=== PATIENT | female | born 1940 | race Caucasian/White ===

== ENCOUNTER → 2016-07-14 | Outpatient (CLI) | payer OTHER, MEDICARE ==
[~2016-07-14] MED LIST: ALBUAER2 INH; AMXCH400 PO; AZITTAB PO; AZMINH INH; GLC500 PO; HYCUDL5 PO; HYD50 PO; LVXUNK; METH4PAK4 PO; PANT40TA PO; POTA-335 PO; SIMV20TA2 PO
[2016-07-14 15:18] LABS: ESTIMATED AVERAGE GLUCOSE 192 mg/dl; HA1C FLAG Normal (Normal)
[2016-07-14 15:37] LABS: BLOOD UREA NITROGEN 16 mg/dl (7-18); BUN/CREATININE RATIO 18.9 (10-20); CALCIUM 9.3 mg/dl (8.5-10.1); CARBON DIOXIDE 27 mmol/L (21-32); CHLORIDE 104 mmol/L (98-107); CREATININE 0.82 mg/dl (0.60-1.20); GLUCOSE 191 mg/dl (70-99); MAGNESIUM 1.9 mg/dl (1.8-2.4); POTASSIUM 4.1 mmol/L (3.5-5.1); SODIUM 140 mmol/L (136-145)
== END | disposition home or self-care (01) ==
LOC: C.LABBC 09:27
PROVIDERS: ATTEND Internal Medicine
DX: E87.6 Hypokalemia (principal); E11.9 Type 2 diabetes mellitus without complications

== ENCOUNTER → 2016-11-21 | Outpatient (CLI) | payer OTHER, MEDICARE ==
[2016-11-21 11:13] LABS: URINE APPEARANCE TURBID (CLEAR); URINE BILIRUBIN NEG (NEG); URINE COLOR DK YELLOW; URINE NITRITE NEG (NEG); URINE PH 5.5 (4.5-7.5); URINE SPECIFIC GRAVITY 1.028 (1.000-1.030); UROBILINOGEN NEG (NEG); ZZUR CULT IF INDIC CLEAN CATCH NO
[2016-11-21 11:15] LABS: MANUAL MICROSCOPIC REQUIRED? NO; REVIEW REQ? NO
[2016-11-21 11:36] LABS: RATIO 16.8 mcg/mg (0-30.0)
== END | disposition home or self-care (01) ==
LOC: C.LABBC 09:25
PROVIDERS: ATTEND Internal Medicine
DX: E11.65 Type 2 diabetes mellitus with hyperglycemia (principal)

== ENCOUNTER → 2016-12-22 | Outpatient (CLI) | payer OTHER, MEDICARE ==
--- NOTE | 2016-12-22 15:51 | MAMMOGRAPHY REPORT ---
BILATERAL DIGITAL SCREENING MAMMOGRAM WITH CAD: 12/22/2016 CLINICAL HISTORY: Routine screening. Patient has no complaints. TECHNIQUE: Bilateral CC and MLO views were obtained. Current study was also evaluated with a Compute r Aided Detection (CAD) system. COMPARISON: Comparison is made to exams dated: 06/28/2015 mammogram, 12/21/2013 mammogram, 10/01/2012 ma mmogram, 03/13/2011 mammogram, 01/16/2010 mammogram - [facility], and 09/05/2008. BREAST COMPOSITION: There are scattered areas of fibroglandular density in both breasts. FINDINGS: There is a stable, benign-appearing grouping of round and punctate microcalcifications in the lateral left breast. A stable intramammary lymph node in the lateral right breast. No new suspic ious mass, architectural distortion or cluster of microcalcifications is seen. IMPRESSION: ACR BI-RADS CATEGORY 2: BENIGN There is no mammographic evidence of malignancy. A 1 year screening mammogram is recommended. The pa tient will receive written notification of the results. Approximately 10% of breast cancers are not detected with mammography. A negative mammographic report should not delay biopsy if a clinically suggestive mass is present. Molly Joyner M.D. ay/:12/22/2016 15:30:31 Proofing Machine Operator: Alivia MENDEZ(Julian)(Allie), [facility] letter sent: Normal 1/2 BI-RADS Code: ACR BI-RADS Category 2: Benign
== END | disposition home or self-care (01) ==
LOC: C.MAMM 14:36
PROVIDERS: ATTEND Internal Medicine
DX: Z12.31 Encounter for screening mammogram for malignant neoplasm of breast (principal)

== ENCOUNTER → 2016-12-23 | Outpatient (CLI) | payer OTHER, MEDICARE ==
[2016-12-23 11:03] LABS: BASO % 0.7 %; BASO ABS # 0.05 K/uL (0-0.2); COMPLETE YES; EOS % 1.6 %; HEMATOCRIT 41.2 % (37-47); IG% 0.1 %; LYMPH % 36.7 %; LYMPH ABS # 2.45 K/uL (1.2-3.4); MEAN CELL VOLUME 84.1 fL (80-100); MEAN CORPUSCULAR HGB CONC 33.3 g/dl (32-36); MEAN PLATELET VOLUME 11.4 fL (7.4-10.4); MONO % 7.8 %; NEUT % 53.1 %; PLATELET COUNT 260 K/uL (130-400); WHITE BLOOD COUNT 6.67 K/uL (4.8-10.8)
[2016-12-23 11:16] LABS: ESTIMATED AVERAGE GLUCOSE 174 mg/dl; HA1C FLAG Normal (Normal)
[2016-12-23 11:23] LABS: ALT/SGPT 15 U/L (12-78); BLOOD UREA NITROGEN 16 mg/dl (7-18); BUN/CREATININE RATIO 21.1 (10-20); CALCIUM 9.5 mg/dl (8.5-10.1); CARBON DIOXIDE 26 mmol/L (21-32); CHLORIDE 105 mmol/L (98-107); CHOLESTEROL 119 mg/dl (0-200); CREATININE 0.75 mg/dl (0.60-1.20); GLUCOSE 136 mg/dl (70-99); POTASSIUM 3.8 mmol/L (3.5-5.1); SODIUM 139 mmol/L (136-145); TRIGLYCERIDES 148 mg/dl (0-150); VERY LOW DENSITY LIPOPROT CALC 30 mg/dl
[2016-12-23 11:34] LABS: ALB/GLOB RATIO 1.2 (0.9-2); ALKALINE PHOSPHATASE 68 U/L (45-117); AST/SGOT 19 U/L (15-37); HDL CHOLESTEROL 40 mg/dl; LDL CHOLESTEROL CALCULATED 49 mg/dl; THYROID STIMULATING HORMONE 0.778 uIu/ml (0.300-4.500)
== END | disposition home or self-care (01) ==
LOC: C.LABBC 08:34
PROVIDERS: ATTEND Internal Medicine
DX: E78.5 Hyperlipidemia, unspecified (principal); E11.65 Type 2 diabetes mellitus with hyperglycemia; E03.9 Hypothyroidism, unspecified

== ENCOUNTER 2020-04-24 14:50 | Observation (INO) ==
[2020-04-24] MEDS ORDERED: SODIUM CHLORIDE 0.9% 1000ML 1,000 ML IV ONE (15:03)
[2020-04-24] MEDS ORDERED: ACETAMINOPHEN 500 MG TAB PO STA (15:03)
--- NOTE | 2020-04-24 15:26 | XRay Report ---
XR chest 1V portable CLINICAL HISTORY: SEPSIS COMPARISON STUDY: July 2012 FINDINGS: The heart is normal in size. There are subtle left lung interstitial opacities and equivoca l subtle airspace opacities within the axillary portion of the left chest. A subtle pneumonitis canno t be excluded. Clinical and radiographic follow-up is recommended. There are no significant pleural e ffusions IMPRESSION: Subtle left lung opacities. This could represent a subtle pneumonitis. Clinical and radio graphic follow-up is recommended ACT 112: Negative or not required by law. Electronically signed by: Bhargav Olguin M.D. 04/24/2020 3:24 PM
[2020-04-24 15:51] LABS: Partial Thromboplastin Time 28.6 Seconds (21.0-31.0)
[2020-04-24 15:55] LABS: Alanine Aminotransferase 26 U/L (12-78); Albumin Level 3.1 gm/dl (3.4-5.0); Aspartate Aminotransferase 38 U/L (15-37); BUN Creatinine Ratio 17.1 (10-20); Blood Urea Nitrogen 19 mg/dl (7-18); Calcium 8.6 mg/dl (8.5-10.1); Carbon Dioxide 23 mmol/L (21-32); Chloride 106 mmol/L (98-107); Creatinine Clr Calc Pharmacy 44.6 ml/min; Est GFR (African American) 53.3; Glucose 258 mg/dl (70-99); Magnesium 1.6 mg/dl (1.8-2.4); Potassium 4.1 mmol/L (3.5-5.1); Sodium 138 mmol/L (136-145)
[2020-04-24 16:00] LABS: Albumin Globulin Ratio 0.8 (0.9-2); Alkaline Phosphatase 87 U/L (45-117); Bilirubin,Total 0.3 mg/dl (0.2-1); Globulin 3.9 gm/dl (2.5-4.0); Troponin I < 0.015 ng/ml (0-0.045)
[2020-04-24 17:16] LABS: Basophils # (auto) 0.02 K/uL (0-0.2); Basophils % (auto) 0.2 %; Hematocrit (blood only) 38.5 % (37-47); Hemoglobin 13.4 g/dL (12.0-16.0); Immature Granulocytes # (auto) 0.02 K/uL (0.00-0.02); Immature Granulocytes % (auto) 0.2 %; Lymphocytes # (auto) 0.74 K/uL (1.2-3.4); Lymphocytes % (auto) 7.7 %; Mean Corpuscular Hemoglobin 29.2 pg (25-34); Mean Corpuscular Hgb Conc 34.8 g/dL (32-36); Mean Corpuscular Volume 83.9 fL (80-100); Mean Platelet Volume 11.5 fL (7.4-10.4); Monocytes # (auto) 0.75 K/uL (0.11-0.59); Monocytes % (auto) 7.8 %; Neutrophils # (auto) 8.12 K/uL (1.4-6.5); Neutrophils % (auto) 84.1 %; Platelet Count 184 K/uL (130-400); RDW Coefficient of Variation 13.9 % (11.5-14.5); RDW Standard Deviation 42.4 fL (36.4-46.3); Red Blood Count 4.59 M/uL (4.2-5.4); White Blood Count 9.65 K/uL (4.8-10.8)
--- NOTE | 2020-04-24 17:39 | Emergency Department Note ---
History of Present Illness General Chief complaint: Illness Stated complaint: HAD TREATEMENT FOR COVID/CHILLS CAN'T STOP Time Seen by Provider: 04/24/20 15:03 History of Present Illness Provider complaint: Fever chills shortness of breath cough Onset (ago): hour(s) 3 Associated symptoms: + cough, + fever/chills and + shortness of breath; no chest pain, no nausea/vomiting and no rash 71-year-old female presents emergency department for fever, chills, shortness of breath, and cough. Patient states her symptoms started approximately 3 hours ago, approximately 45 minutes since she got home after she was seen in the emergency department today for receiving an infusion of Regeneron, the monocl onal antibody for COVID-19. Patient states that since she had the symptoms she was instructed to return back to the emergency department. She denies any chest pain. She denies any nausea or vomiting. She denies any tongue or lip swelling. Home Medications Medication Instructions Recorded Confirmed Type cholecalciferol (vitamin D3) 50 2,000 units PO DAILY 09/01/18 04/24/20 History mcg (2,000 unit) capsule cetirizine 10 mg tablet 10 mg PO DAILY tab 11/24/18 04/24/20 History magnesium oxide 400 mg (241.3 mg 400 mg PO DAILY tab 11/24/18 04/24/20 History magnesium) tablet tamoxifen 10 mg tablet 10 mg PO Q2D tab 11/24/18 04/24/20 History albuterol sulfate 90 mcg/actuation See Rx Instructions INHALATION Q4H 12/29/18 04/24/20 Rx aerosol inhaler PRN #18 gm budesonide-formoterol HFA 160 2 puffs INH BID #6 gm 06/16/19 04/24/20 Rx mcg-4.5 mcg/actuation aerosol inhaler dulaglutide 0.75 mg/0.5 mL 0.75 mg SUBCUT .weekly #2 ml 10/25/19 04/24/20 Rx subcutaneous pen injector glipizide 5 mg tablet, extended See Rx Instructions .ROUTE 10/25/19 04/24/20 Rx release 24 hr .COMPLEX #270 tab levothyroxine 75 mcg tablet 75 mcg PO DAILY #90 tab 10/25/19 04/24/20 Rx losartan 50 mg tablet 50 mg PO DAILY #90 tab 10/25/19 04/24/20 Rx metformin 500 mg tablet 1,000 mg PO BID #360 tab 10/25/19 04/24/20 Rx simvastatin 20 mg tablet 20 mg PO DAILY #90 tab 10/25/19 04/24/20 Rx spironolactone 25 mg tablet 25 mg PO DAILY #90 tab 10/25/19 04/24/20 Rx Allergies Allergy/AdvReac Type Severity Reaction Status Date / Time lisinopril Allergy Cough Verified 04/24/20 09:39 meperidine Allergy Unknown Verified 04/24/20 09:39 propoxyphene Allergy Unknown Verified 04/24/20 09:39 DEMEROL AdvReac Unknown Vomiting Uncoded 04/24/20 09:39 Past Med/Surg History Medical History Actinic keratosis Asthma Hyperlipidemia Hypertension Hypothyroidism 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 Rosacea Schatzki's ring Seasonal allergies Type 2 diabetes mellitus Surgical History H/O lumpectomy H/O umbilical hernia repair H/O vaginal hysterectomy S/P anal fissurectomy S/P tonsillectomy S/P tooth extraction Family History Mother Anxiety Cardiac disorder Hypertension Myocardial infarction Thyroid disorder Sister Anxiety Father Alcohol abuse Diabetes Hypertension Stroke Denies family history of Ovarian cancer Prostate cancer Breast cancer Colorectal cancer Social History Smoking Status: Never smoker Second Hand Exposure: No; Hx Alcohol Use: Yes Hx Substance Use: No Preferred Language: Turkish Visual Impairment: No Limitations Hearing Ability: Normal marital status: Current Living Situation: Spouse current occupational status: retired Feels Safe at Home: Yes Dental Care, Regularly: Yes Physical Activity Frequency: 5-6 Times per Week Review of Systems A total of 10 systems reviewed and were otherwise negative Physical Exam Vital Signs Vital Signs - 24 hr 04/24/20 14:58 04/24/20 15:49 04/24/20 15:52 Temperature 39.4 C H Temperature Source Oral Pulse Rate 118 H 111 H 110 H Pulse Rate [Exercises] Pulse Rate from SpO2 Sensor 111 H 111 H Pulse Rhythm Regular Pulse Strength Normal Respiratory Rate 22 22 27 H Respiratory Rate [Exercises] Respiratory Effort / Characteristics Non-Labored Respiratory Depth Normal Respiratory Pattern Regular Blood Pressure 123/64 137/66 Blood Pressure Mean 83 89 Blood Pressure Position Sitting Pulse Oximetry 92 89 L 88 L Pulse Oximetry [Exercises] Oxygen Delivery Method Room Air Sepsis Recent Fever Within 48 Hours Yes Sepsis New/Unexplained Change in Mental Status No Sepsis Action Taken by Nursing No Action Required 04/24/20 16:00 04/24/20 16:01 04/24/20 16:30 Temperature Temperature Source Pulse Rate 110 H 110 H 100 H Pulse Rate [Exercises] Pulse Rate from SpO2 Sensor 110 H 110 H 100 H Pulse Rhythm Pulse Strength Respiratory Rate 29 H 30 H 30 H Respiratory Rate [Exercises] Respiratory Effort / Characteristics Respiratory Depth Respiratory Pattern Blood Pressure 122/62 110/59 L Blood Pressure Mean 82 76 Blood Pressure Position Pulse Oximetry 88 L 88 L 88 L Pulse Oximetry [Exercises] Oxygen Delivery Method Sepsis Recent Fever Within 48 Hours Sepsis New/Unexplained Change in Mental Status Sepsis Action Taken by Nursing 04/24/20 16:31 04/24/20 17:00 04/24/20 17:29 Temperature Temperature Source Pulse Rate 99 H 100 H Pulse Rate [Exercises] 93 H Pulse Rate from SpO2 Sensor 99 H 101 H Pulse Rhythm Pulse Strength Respiratory Rate 23 19 Respiratory Rate [Exercises] 20 Respiratory Effort / Characteristics Respiratory Depth Respiratory Pattern Blood Pressure 113/66 Blood Pressure Mean 81 Blood Pressure Position Pulse Oximetry 91 91 Pulse Oximetry [Exercises] 90 Oxygen Delivery Method Room Air Sepsis Recent Fever Within 48 Hours Sepsis New/Unexplained Change in Mental Status Sepsis Action Taken by Nursing Physical Exam GENERAL: She is oriented to person, place, and time. She appears well-developed and well-nourished. She does not appear distressed. HENT: Exam performed. -Head: Normocephalic and atraumatic. -Right Ear: External ear normal. No mastoid tenderness. -Left Ear: External ear normal. No mastoid tenderness. -Mouth/Throat: The oropharynx is clear and moist. No trismus in the jaw. No dental abscesses or uvula swelling. No oropharyngeal exudate or tonsillar abscesses. EYES: Conjunctivae and EOM are normal. Pupils are equal, round, and reactive to light. Right eye exhibits no discharge. Left eye exhibits no discharge. No sc leral icterus. NECK: Normal range of motion. Neck supple. No JVD present. No spinous process tenderness present. No carotid bruit present. No rigidity. No tracheal deviation and normal range of motion present. No Brudzinski's sign and no Kernig's sign noted. CV: Tachycardic rate, regular rhythm, normal heart sounds and intact distal pulses. There is no peripheral edema. Palpable radial pulses bue. PULM/CHEST: Effort normal and breath sounds normal. No respiratory distress. No stridor. She has no wheezes. She has no rales. -Chest Wall: She exhibits no tenderness. ABD: The abdomen is soft. Bowel sounds are normal. She has no distension. No mass is present. There is no tenderness. There is no rebound, no guarding, no Perez's sign and no tenderness at McBurney's point. Rovsig negative MUSC/SKEL: Normal range of motion. There is no peripheral edema, tenderness or deformity. LYMPH: No cervical adenopathy. NEURO: She is alert and oriented to person, place, and time. She has normal strength. No cranial nerve deficit or sensory deficit. Coordination and gait normal. GCS eye subscore is 4. GCS verbal subscore is 5. GCS motor subscore is 6. Cerebellar tests wnl. SKIN: Skin is warm and dry. She is not diaphoretic. PSYCH: She has a normal mood and affect. Behavior is normal. Judgment and thought content normal. Course Course 1503: The patient was evaluated in room C10. A complete history and physical exam was performed. Patient was seen in full airborne precautions. Patient was seen in N95's, gloves, gowns, face shield by myself and staff. Cardiac monitoring: An order was placed for continuous cardiac monitoring. The monitor shows a rate of 110 with sinus tachycardia rhythm Patient has no lip or tongue swelling. She has no rash. Lungs are clear to auscultation bilaterally. Patient is not having any anaphylactic symptoms. It is unclear if the patient is having adverse drug reaction to the monoclonal antibody or if the patient is having progression of her Covid symptoms. Will check labs and continue to monitor patient. 1800: Patient is satting between 90 and 92% on room air. Patient's labs showed a normal white blood cell count but did show a lactic acid of 4.8. Her chest x- ray showed subtle left lung opacities. I had a very long discussion with the patient in her room about her findings today. I explained all of her lab results and that her lactic acidemia could be due to a worsening infection, primarily her COVID-19, or could be due to dehydration. Patient states she does feel very dehydrated. I did explain to her that I do not think that the patient was having an anaphylactic reaction and it could be more of a medication reaction or worsening of her COVID-19 that is causing her symptoms today. I did state that given her age, her lactic acid level, her tachycardia, intermittent hypoxia, difficulty arranging outpatient follow-up, and symptoms it would be prudent to keep the patient in the hospital overnight and make sure the patient is not having worsening of symptoms or any sort of delayed reaction to the Regeneron that she was given earlier today. Patient thanked me for taking the time to explain the results of her test to her today. Dr. Konrad marshall [facility] hospitalist team was notified and will admit the patient. Administered Medications Discontinued Medications Acetaminophen (Acetaminophen 500 Mg Tab) 1,000 mg PO NOW STA Stop: 04/24/20 15:04 Last Admin: 04/24/20 15:55 Dose: 1,000 mg Documented by: [id number] Sodium Chloride (Nss 1000ml) 1,000 mls @ 999 mls/hr IV .Q1H1M ONE Stop: 04/24/20 16:03 Last Infusion: 04/24/20 16:59 Dose: 0 mls/hr Documented by: [id number] Admin: 04/24/20 15:55 Dose: 999 mls/hr Documented by: [id number] Critical Care Time Critical Care Time: Yes Total Critical Care Time: 78 I have personally spent greater than 78 minutes of critical care time in the direct management of this patient. This includes bedside care, interpretation of diagnostic studies, and testing, discussion with consultants, patient, and family members, and other required patient management activities. This 78 minutes is in excess of all separately billable procedures. Medical Decision Making Laboratory Data Result diagrams: 04/24/20 17:05 04/24/20 15:27 Lab Results 04/24/20 04/24/20 04/24/20 Range/Units 15:27 15:27 17:05 WBC (4.8-10.8) K/uL RBC (4.2-5.4) M/uL Hgb (12.0-16.0) g/dL Hct (37-47) % MCV (80-100) fL MCH (25-34) pg MCHC (32-36) g/dL RDW Std Deviation (36.4-46.3) fL RDW Coeff of Alethea (11.5-14.5) % Plt Count (130-400) K/uL MPV (7.4-10.4) fL Immature Gran % (Auto) % Neut % (Auto) % Lymph % (Auto) % Potter % (Auto) % Eos % (Auto) % Baso % (Auto) % Neut # (Auto) (1.4-6.5) K/uL Lymph # (Auto) (1.2-3.4) K/uL Potter # (Auto) (0.11-0.59) K/uL Eos # (Auto) (0-0.5) K/uL Baso # (Auto) (0-0.2) K/uL Immature Gran # (Auto) (0.00-0.02) K/uL PT 11.0 (9.0-12.0) Seconds INR 1.0 (0.9-1.1) APTT 28.6 (21.0-31.0) Seconds PTT Ratio 1.0 Sodium 138 (136-145) mmol/L Potassium 4.1 (3.5-5.1) mmol/L Chloride 106 (98-107) mmol/L Carbon Dioxide 23 (21-32) mmol/L Anion Gap 9.0 (3-11) BUN 19 H (7-18) mg/dl Creatinine 1.14 (0.6-1.2) mg/dl Est Cr Clr Drug Dosing 44.6 ml/min Est GFR ( Amer) 53.3 Est GFR (Non-Af Amer) 46.0 BUN/Creatinine Ratio 17.1 (10-20) Glucose 258 H (70-99) mg/dl Lactate (0.4-2.0) mmol/L Calcium 8.6 (8.5-10.1) mg/dl Magnesium 1.6 L (1.8-2.4) mg/dl Total Bilirubin 0.3 (0.2-1) mg/dl AST 38 H (15-37) U/L ALT 26 (12-78) U/L Alkaline Phosphatase 87 (45-117) U/L Troponin I < 0.015 (0-0.045) ng/ml Total Protein 7.0 (6.4-8.2) gm/dl Albumin 3.1 L (3.4-5.0) gm/dl Globulin 3.9 (2.5-4.0) gm/dl Albumin/Globulin Ratio 0.8 L (0.9-2) Procalcitonin 0.11 (0-0.5) ng/ml 04/24/20 04/24/20 Range/Units 17:05 17:05 WBC 9.65 (4.8-10.8) K/uL RBC 4.59 (4.2-5.4) M/uL Hgb 13.4 (12.0-16.0) g/dL Hct 38.5 (37-47) % MCV 83.9 (80-100) fL MCH 29.2 (25-34) pg MCHC 34.8 (32-36) g/dL RDW Std Deviation 42.4 (36.4-46.3) fL RDW Coeff of Alethea 13.9 (11.5-14.5) % Plt Count 184 (130-400) K/uL MPV 11.5 H (7.4-10.4) fL Immature Gran % (Auto) 0.2 % Neut % (Auto) 84.1 % Lymph % (Auto) 7.7 % Potter % (Auto) 7.8 % Eos % (Auto) 0.0 % Baso % (Auto) 0.2 % Neut # (Auto) 8.12 H (1.4-6.5) K/uL Lymph # (Auto) 0.74 L (1.2-3.4) K/uL Potter # (Auto) 0.75 H (0.11-0.59) K/uL Eos # (Auto) 0.00 (0-0.5) K/uL Baso # (Auto) 0.02 (0-0.2) K/uL Immature Gran # (Auto) 0.02 (0.00-0.02) K/uL PT (9.0-12.0) Seconds INR (0.9-1.1) APTT (21.0-31.0) Seconds PTT Ratio Sodium (136-145) mmol/L Potassium (3.5-5.1) mmol/L Chloride (98-107) mmol/L Carbon Dioxide (21-32) mmol/L Anion Gap (3-11) BUN (7-18) mg/dl Creatinine (0.6-1.2) mg/dl Est Cr Clr Drug Dosing ml/min Est GFR ( Amer) Est GFR (Non-Af Amer) BUN/Creatinine Ratio (10-20) Glucose (70-99) mg/dl Lactate 4.8 H* (0.4-2.0) mmol/L Calcium (8.5-10.1) mg/dl Magnesium (1.8-2.4) mg/dl Total Bilirubin (0.2-1) mg/dl AST (15-37) U/L ALT (12-78) U/L Alkaline Phosphatase (45-117) U/L Troponin I (0-0.045) ng/ml Total Protein (6.4-8.2) gm/dl Albumin (3.4-5.0) gm/dl Globulin (2.5-4.0) gm/dl Albumin/Globulin Ratio (0.9-2) Procalcitonin (0-0.5) ng/ml Imaging Data Radiologist's Impression: XR chest 1V portable CLINICAL HISTORY: SEPSIS COMPARISON STUDY: July 2012 FINDINGS: The heart is normal in size. There are subtle left lung interstitial opacities and equivocal subtle airspace opacities within the axillary portion of the left chest. A subtle pneumonitis cannot be excluded. Clinical and radiographic follow-up is recommended. There are no significant pleural effusions IMPRESSION: Subtle left lung opacities. This could represent a subtle pneumonitis. Clinical and radiographic follow-up is recommended ACT 112: Negative or not required by law. Electronically signed by: Bhargav Olguin M.D. 04/24/2020 3:24 PM ECG Data Indication: + SOB/dyspnea Rate (beats per minute): 112 Rhythm: + sinus tachycardia ECG Intervals/blocks: + First degree AV block, + Normal QRS and + Normal QT-c ECG ST segments: + Normal ST segments [place] Narrative 1503: The patient was evaluated in room C10. A complete history and physical exam was performed. Patient was seen in full airborne precautions. Patient was seen in N95's, gloves, gowns, face shield by myself and staff. Cardiac monitoring: An order was placed for continuous cardiac monitoring. The monitor shows a rate of 110 with sinus tachycardia rhythm Patient has no lip or tongue swelling. She has no rash. Lungs are clear to auscultation bilaterally. Patient is not having any anaphylactic symptoms. It is unclear if the patient is having adverse drug reaction to the monoclonal antibody or if the patient is having progression of her Covid symptoms. Will check labs and continue to monitor patient. 1800: Patient is satting between 90 and 92% on room air. Patient's labs showed a normal white blood cell count but did show a lactic acid of 4.8. Her chest x- ray showed subtle left lung opacities. I had a very long discussion with the patient in her room about her findings today. I explained all of her lab results and that her lactic acidemia could be due to a worsening infection, primarily her COVID-19, or could be due to dehydration. Patient states she does feel very dehydrated. I did explain to her that I do not think that the patient was having an anaphylactic reaction and it could be more of a medication reaction or worsening of her COVID-19 that is causing her symptoms today. I did state that given her age, her lactic acid level, her tachycardia, intermittent hypoxia, difficulty arranging outpatient follow-up, and symptoms it would be prudent to keep the patient in the hospital overnight and make sure the patient is not having worsening of symptoms or any sort of delayed reaction to the Regeneron that she was given earlier today. Patient thanked me for taking the time to explain the results of her test to her today. Dr. Konrad marshall [facility] hospitalist team was notified and will admit the patient. Impression & Plan Hypoxia, Sepsis, COVID-19, Adverse drug reaction Discharge Plan Visit Data Chief Complaint: Illness Stated Complaint: HAD TREATEMENT FOR COVID/CHILLS CAN'T STOP ED Provider: Morgan Salazar Discharge Problem: Hypoxia, Sepsis, COVID-19, Adverse drug reaction Patient Disposition: Admitted As Inpatient Forms Stand Alone Forms: [facility] Prescriptions Prescriptions: No Action albuterol sulfate 90 mcg/actuation HFA aerosol inhaler See Rx Instructions inhalation Q4H PRN (Reason: shortness of breath or wheezing) Qty: 18 RF: 5 Symbicort 160-4.5 mcg/actuation HFA aerosol inhaler 2 puffs INH BID Qty: 6 RF: 5 spironolactone 25 mg tablet 25 mg PO DAILY Qty: 90 RF: 3 simvastatin 20 mg tablet 20 mg PO DAILY Qty: 90 RF: 3 metformin 500 mg tablet 1,000 mg PO BID Qty: 360 RF: 3 losartan 50 mg tablet 50 mg PO DAILY Qty: 90 RF: 3 levothyroxine 75 mcg tablet 75 mcg PO DAILY Qty: 90 RF: 3 glipizide 5 mg tablet extended release 24hr See Rx Instructions .ROUTE .COMPLEX Qty: 270 RF: 3 dulaglutide 0.75 mg/0.5 mL pen injector 0.75 mg subcut .weekly Qty: 2 RF: 5 cholecalciferol (vitamin D3) 2,000 unit capsule 2,000 units PO DAILY RF: 0 cetirizine 10 mg tablet 10 mg PO DAILY RF: 0 magnesium oxide 400 mg (241.3 mg magnesium) tablet 400 mg PO DAILY RF: 0 tamoxifen 10 mg tablet 10 mg PO Q2D RF: 0 Referrals Referrals: Araseli Mai MD [Primary Care Provider] - Discharge Problem: Sepsis Qualifiers: Sepsis type: sepsis due to unspecified organism Sepsis acute organ dysfunction status: unspecified Qualified Code(s): A41.9 - Sepsis, unspecified organism Adverse drug reaction Qualifiers: Encounter type: initial encounter Qualified Code(s): T50.905A - Adverse effect of unspecified drugs, medicaments and biological substances, initial encounter
[2020-04-24] MEDS ORDERED: SODIUM CHLORIDE 0.9% 1000ML 1,000 ML IV SCH (18:00)
--- NOTE | 2020-04-24 18:06 | History & Physical Report ---
Date of Service April 24, 2020 Assessment & Plan (1) COVID-19: Sx started 04/16, dx + on 04/17 Regeneron tx on 04/24 ?? side effects of Regeneron vs ongoing COVID recovery Elevated lactic acid is not unexpected in a COVID pt WBC WNL Blood cx pending Of note, her procal is negative Pt with mild hypoxia with ambulation, but noted on pulse ox only. Pt does not feel SOB with sats at 88%. (2) Hypertension: continue home meds (3) Hypothyroidism: continue home meds (4) Hyperlipidemia: continue home meds (5) Type 2 diabetes mellitus: Holding metformin given elevated lactic acid I suspect her lactic has been elevated throughout her illness and no issues with metformin use in that setting, but I will hold it for now (6) DVT prophylaxis: SCDs given likely short observation stay If pt is going to be admitted for longer, then this should be re-evaluated History of Present Illness Primary Care Provider: Araseli Mai MD 79 y/o F c/o side effect from Regeneron administration earlier today. Pt started having COVID sx of symptoms of feverishness, body aches, cough and nausea beginning on 04/16. She tested positive for COVID on 04/17. Pt was given Regeneron earlier today in the ED. She was monitored as recommended post-administration and had no issues at that time. She was d/c'd to home. Pt was at home and had sudden onset of intense coughing that lead to sputum production and SOB. She had been given a handout regarding possible side effects of Regeneron and these were listed, so she came back to the ED. Upon arrival, pt was noted to have O2 sats around 92% on RA with VSS. There is no further guidance on what to do if a pt had side effects from this medication, so it was suggested that she be brought in overnight for observation. I did discuss this with pt and she states she is currently feeling back how she had been while recovering from COVID. Pt states she had a bit of SOB last night when walking up the stairs to go to bed and she has had a cough throughout her COVID illness. Pt told me that she would like to try to walk around and if she felt as she had yesterday, she would like to go home. I gave her the option to see how she felt after a period of time and decide if she would like to stay for observation vs d/c to home. I did discuss this with ED physician who then spoke with pt and he reports that she would like to stay. Pt denies fever, chest pain, abd pain, n/v/c/d, LE pain or swelling. She has been eating without issue. Allergies Allergy/AdvReac Type Severity Reaction Status Date / Time lisinopril Allergy Cough Verified 04/24/20 09:39 meperidine Allergy Unknown Verified 04/24/20 09:39 propoxyphene Allergy Unknown Verified 04/24/20 09:39 DEMEROL AdvReac Unknown Vomiting Uncoded 04/24/20 09:39 Home Medications Medication Instructions Recorded Confirmed Type cholecalciferol (vitamin D3) 50 2,000 units PO DAILY 09/01/18 04/24/20 History mcg (2,000 unit) capsule cetirizine 10 mg tablet 10 mg PO DAILY tab 11/24/18 04/24/20 History magnesium oxide 400 mg (241.3 mg 400 mg PO DAILY tab 11/24/18 04/24/20 History magnesium) tablet tamoxifen 10 mg tablet 10 mg PO Q2D tab 11/24/18 04/24/20 History albuterol sulfate 90 mcg/actuation See Rx Instructions INHALATION Q4H 12/29/18 04/24/20 Rx aerosol inhaler PRN #18 gm budesonide-formoterol HFA 160 2 puffs INH BID #6 gm 06/16/19 04/24/20 Rx mcg-4.5 mcg/actuation aerosol inhaler dulaglutide 0.75 mg/0.5 mL 0.75 mg SUBCUT .weekly #2 ml 10/25/19 04/24/20 Rx subcutaneous pen injector glipizide 5 mg tablet, extended See Rx Instructions .ROUTE 10/25/19 04/24/20 Rx release 24 hr .COMPLEX #270 tab levothyroxine 75 mcg tablet 75 mcg PO DAILY #90 tab 10/25/19 04/24/20 Rx losartan 50 mg tablet 50 mg PO DAILY #90 tab 10/25/19 04/24/20 Rx metformin 500 mg tablet 1,000 mg PO BID #360 tab 10/25/19 04/24/20 Rx simvastatin 20 mg tablet 20 mg PO DAILY #90 tab 10/25/19 04/24/20 Rx spironolactone 25 mg tablet 25 mg PO DAILY #90 tab 10/25/19 04/24/20 Rx Past Med/Surg History Medical History Actinic keratosis Asthma Hyperlipidemia Hypertension Hypothyroidism 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 Rosacea Schatzki's ring Seasonal allergies Type 2 diabetes mellitus Surgical History H/O lumpectomy H/O umbilical hernia repair H/O vaginal hysterectomy S/P anal fissurectomy S/P tonsillectomy S/P tooth extraction Family History Mother Anxiety Cardiac disorder Hypertension Myocardial infarction Thyroid disorder Sister Anxiety Father Alcohol abuse Diabetes Hypertension Stroke Denies family history of Ovarian cancer Prostate cancer Breast cancer Colorectal cancer Social History Smoking Status: Never smoker Second Hand Exposure: No; Hx Alcohol Use: Yes Hx Substance Use: No Preferred Language: Tanz[place] Visual Impairment: No Limitations Hearing Ability: Normal marital status: Current Living Situation: Spouse current occupational status: retired Feels Safe at Home: Yes Dental Care, Regularly: Yes Physical Activity Frequency: 5-6 Times per Week Review of Systems Review of Systems: Pertinent positives and negatives reviewed in HPI--all others negative Physical Exam 2 Constitutional: WD/WN, vitals as above Eyes: normal visual zamora by confrontation and + anicteric sclerae Neck: normal visual inspection and trachea midline Respiratory: normal respiratory effort, lungs clear to auscultation Cardiovascular: Rate/Rhythm: regular rate and regular rhythm Gastrointestinal (Abdomen): Inspection/Auscultation: abdomen not distended Percussion/Palpation: abdomen soft; abdomen nontender Musculoskeletal: Head/Neck/Chest: normocephalic and head atraumatic negative for edema, peripheral pulses intact Skin: no rashes, warm and dry Neurologic: awake; not confused Speech / Cognition: normal speech Psychiatric: A+Ox3, euthymic affect Results & Data Results & Data ([facility]) Vital Signs (Past 12 Hours) Vital Signs Temp Pulse Pulse Resp Resp BP Pulse Ox 04/24/20 17:29 93 H 20 04/24/20 17:00 100 H 19 113/66 91 04/24/20 16:31 99 H 23 91 04/24/20 16:30 100 H 30 H 110/59 L 88 L 04/24/20 16:01 110 H 30 H 88 L 04/24/20 16:00 110 H 29 H 122/62 88 L 04/24/20 15:52 110 H 27 H 88 L 04/24/20 15:49 111 H 22 137/66 89 L 04/24/20 14:58 39.4 C H 118 H 22 123/64 92 Pulse Ox 04/24/20 17:29 90 04/24/20 17:00 04/24/20 16:31 04/24/20 16:30 04/24/20 16:01 04/24/20 16:00 04/24/20 15:52 04/24/20 15:49 04/24/20 14:58 Diagnostic Findings CXR: possible pneumonitis Code Status & VTE Plan VTE Prophylaxis Plan VTE Prophylaxis will be ordered: Yes PG Care Time/CCT Total # of Minutes Spent Total Time Spent with Patient: Total time spent is greater than 50% in coordination of care (as documented) at patient's floor/unit and/or counseling patient: Coding Level of Care Code 69511 OBS Care - Level 3 Diagnoses COVID-19 U07.1 Hypertension I10 Hypothyroidism E03.9 Hyperlipidemia E78.5 Type 2 diabetes mellitus E11.9 DVT prophylaxis Z29.9
[2020-04-24] MEDS ORDERED: ALBUTEROL HFA 8 GM INHALER INH PRN (19:39)
[2020-04-24] MEDS: SODIUM CHLORIDE 0.9% 1000ML 1,000 ML IV SCH (21:09)
[2020-04-24 23:55] LABS: Appearance Urine Clear (Clear); Bacteria Urine Automated Negative (Negative); Bilirubin Urine Negative (Negative); Blood Urine Negative (Negative); Color Urine Dark Yellow; Epithelial Cell Urine Auto >30 /lpf (0-5); Glucose Urine UA 3+ (Negative); Ketones Urine 1+ (Negative); Leukocyte Esterase Urine Negative (Negative); Nitrite Urine Negative (Negative); Protein Urine Trace (Negative); RBC Urine Automated 0-4 /hpf (0-4); Specific Gravity Urine 1.035 (1.000-1.030); Urobilinogen Urine Negative (Negative); pH Urine 5.5 (4.5-7.5)
[2020-04-25] MEDS ORDERED: LEVOTHYROXINE SODIUM 75 MCG TABLET PO SCH (06:30)
[2020-04-25 07:28] LABS: BUN Creatinine Ratio 26.6 (10-20); Calcium 7.4 mg/dl (8.5-10.1); Creatinine Clr Calc Pharmacy 79.4 ml/min; Est GFR (African American) 99.1; Est GFR (Non-African American) 85.5; Potassium 3.4 mmol/L (3.5-5.1)
[2020-04-25] MEDS ORDERED: FLUTICASONE/VILANTEROL 200/25MCG 14 PUFFS/INHALER INH SCH (09:00)
[2020-04-25] MEDS ORDERED: LOSARTAN POTASSIUM 50 MG TAB PO SCH (09:00)
[2020-04-25] MEDS ORDERED: MAGNESIUM OXIDE 400 MG TAB PO SCH (09:00)
[2020-04-25] MEDS ORDERED: glipiZIDE ER 2.5 MG TABCR PO SCH ×2 (09:00→17:00)
[2020-04-25] MEDS ORDERED: CHOLECALCIFEROL 1,000 UNITS 25 MCG TAB PO SCH (09:00)
[2020-04-25] MEDS ORDERED: SPIRONOLACTONE 25 MG TAB PO SCH (09:00)
[2020-04-25] MEDS ORDERED: CETIRIZINE HCL 10 MG TABLET PO SCH (09:00)
[2020-04-25] MEDS ORDERED: SIMVASTATIN 20 MG TAB PO SCH (09:00)
[2020-04-25] MEDS: SODIUM CHLORIDE 0.9% 1000ML 1,000 ML IV SCH (09:19)
[2020-04-25] MEDS ORDERED: POTASSIUM CHLORIDE CRTAB 20 MEQ TABCR PO STA (09:38)
[2020-04-25] MEDS ORDERED: dexAMETHasone 1 MG TAB PO SCH (09:45)
[2020-04-25] MEDS ORDERED: TRULICITY SQ SCH (10:00)
[2020-04-25] MEDS ORDERED: dexAMETHasone 4 MG TAB PO SCH (10:00)
--- NOTE | 2020-04-25 10:12 | Electrocardiogram Report ---
Test Reason : Blood Pressure : / mmHG Vent. Rate : 112 BPM Atrial Rate : 112 BPM P-R Int : 204 ms QRS Dur : 082 ms QT Int : 320 ms P-R-T Axes : 050 -42 059 degrees QTc Int : 436 ms Poor data quality, interpretation may be adversely affected Sinus tachycardia Left axis deviation Abnormal ECG When compared with ECG of 15-JUN-2008 21:01, No significant change was found Confirmed by Benson Aponte ([id number]) on 04/25/2020 10:11:57 AM Referred By: REFERRED SELF Confirmed By:Cedric Aponte
--- NOTE | 2020-04-25 11:56 | Discharge Summary ---
Date of Service April 25, 2020 Admission HPI Per Admitting Provider 79 y/o F c/o side effect from Regeneron administration earlier today. Pt started having COVID sx of symptoms of feverishness, body aches, cough and nausea beginning on 04/16. She tested positive for COVID on 04/17. Pt was given Regeneron earlier today in the ED. She was monitored as recommended post-administration and had no issues at that time. She was d/c'd to home. Pt was at home and had sudden onset of intense coughing that lead to sputum production and SOB. She had been given a handout regarding possible side effects of Regeneron and these were listed, so she came back to the ED. Upon arrival, pt was noted to have O2 sats around 92% on RA with VSS. There is no further guidance on what to do if a pt had side effects from this medication, so it was suggested that she be brought in overnight for observation. I did discuss this with pt and she states she is currently feeling back how she had been while recovering from COVID. Pt states she had a bit of SOB last night when walking up the stairs to go to bed and she has had a cough throughout her COVID illness. Pt told me that she would like to try to walk around and if she felt as she had yesterday, she would like to go home. I gave her the option to see how she felt after a period of time and decide if she would like to stay for observation vs d/c to home. I did discuss this with ED physician who then spoke with pt and he reports that she would like to stay. Pt denies fever, chest pain, abd pain, n/v/c/d, LE pain or swelling. She has been eating without issue. Principal Diagnosis Medication adverse reaction, respiratory insufficiency, fever Discharge Exam Constitutional WD/WN, vitals as above Eyes + anicteric sclerae ENMT external ear and nose normal, oropharynx normal Mouth: no lip abnormality and no tongue abnormality Neck trachea midline, no thyromegaly Respiratory normal respiratory effort, lungs clear to auscultation Cardiovascular RRR, no murmur, no edema Chest (Breasts) Chest: normal inspection of chest Gastrointestinal (Abdomen) normal bowel sounds, soft, nontender, no hepatosplenomegaly Musculoskeletal Extremities: extremities normal to inspection; no cyanosis and no clubbing Skin no rashes, warm and dry Neurologic moves all extremities and awake; no focal motor deficits Psychiatric A+Ox3, euthymic affect Lymphatic no lymphedema Discharge Data Allergies Allergy/AdvReac Type Severity Reaction Status Date / Time lisinopril Allergy Cough Verified 04/24/20 09:39 meperidine Allergy Unknown Verified 04/24/20 09:39 propoxyphene Allergy Unknown Verified 04/24/20 09:39 DEMEROL AdvReac Unknown Vomiting Uncoded 04/24/20 09:39 Consultations 04/24/20 17:55 ED Decision to Admit Stat Ordered Studies CXR Hospital Course (1) Medication reaction: Had acute onset of bronchospasm, fever, mild respiratory insufficiency within 2 hours after receiving infusion on Regeneron Had elevated lactate, POx 88% on RA with ambulation, intense cough, fever all now resolved. CXR with subtle left sided opacities likely from her ongoing COVID-19 Ambulatory POx prior to discharge 90-93% and asymptomatic, doing well Has a h/o asthma as well--> recommend continued albuterol prn, stable for dc to home with close f/u with PCP No other signs of anaphylaxis (2) COVID-19: Sx started 04/16, dx + on 04/17 Regeneron tx on 04/24 Had a fever here on arrival as above--> from COVID itself vs drug reaction WBC WNL Blood cx pending-NGTD Of note, her procal is negative Sent home with Rx for decadron (3) Hypertension: continue home meds (4) Hypothyroidism: continue home meds (5) Hyperlipidemia: continue home meds (6) Type 2 diabetes mellitus: Holding metformin given elevated lactic acid but can restart on dc (7) DVT prophylaxis: SCDs Dispo-stable for dc to home Total Time Total Time Spent Total Time Spent (In Minutes): 35 min Total Time Includes: Examination of the Patient, Discharge Planning and Medication Reconciliation Discharge Plan Discharge Items Patient Disposition: Home - Self-Care Reason For Visit: POST MEDICATION REACTION MONITORING Discharge Diagnosis: COVID-19 Pneumonia, Mild hypoxia and Cough, Regeneron reaction Condition on Discharge: Good Activity: As commented below Bathing: No limitations Exercise/Sports: Gradually increase as tolerated Non-emergency contact: Primary Care Provider Call non-emergency contact if: you have any medication questions and your symptoms worsen Follow-up/Referrals: Araseli Mai MD [Primary Care Provider] - 05/01/20 2:00 pm (VIRTUAL APPT WITH PCP) Diet: Carb Consistent or DM2 Addtl Attending Provider Instructions: You were admitted for observation after having a reaction to Regeneron that included a fever, cough, and shortness of breath. Your symptoms improved on their own but your mildly low oxygen levels from the COVID-19 pneumonia can be treated with a steroid pill called dexamethasone. Please finish out 9 more days of dexamethasone 6 mg once daily. Continue to use your albuterol inhaler every 4-6 hours as needed for cough. You might notice your blood glucose levels increasing from the steroids. If your glucose is > 300, please call your PCP for advice. Follow up with your PCP within 1-2 weeks. You should remain in quarantine for at least one more week. Pending Studies at Discharge: No Stand-Alone Forms: [facility] Medications and DC Order Prescriptions: New dexamethasone 6 mg tablet 6 mg PO DAILY Qty: 9 RF: 0 Continued albuterol sulfate 90 mcg/actuation HFA aerosol inhaler See Rx Instructions inhalation Q4H PRN (Reason: shortness of breath or wheezing) Qty: 18 RF: 5 Symbicort 160-4.5 mcg/actuation HFA aerosol inhaler 2 puffs INH BID Qty: 6 RF: 5 spironolactone 25 mg tablet 25 mg PO DAILY Qty: 90 RF: 3 simvastatin 20 mg tablet 20 mg PO DAILY Qty: 90 RF: 3 metformin 500 mg tablet 1,000 mg PO BID Qty: 360 RF: 3 losartan 50 mg tablet 50 mg PO DAILY Qty: 90 RF: 3 levothyroxine 75 mcg tablet 75 mcg PO DAILY Qty: 90 RF: 3 glipizide 5 mg tablet extended release 24hr See Rx Instructions .ROUTE .COMPLEX Qty: 270 RF: 3 dulaglutide 0.75 mg/0.5 mL pen injector 0.75 mg subcut .weekly Qty: 2 RF: 5 cholecalciferol (vitamin D3) 2,000 unit capsule 2,000 units PO DAILY RF: 0 cetirizine 10 mg tablet 10 mg PO DAILY RF: 0 magnesium oxide 400 mg (241.3 mg magnesium) tablet 400 mg PO DAILY RF: 0 tamoxifen 10 mg tablet 10 mg PO Q2D RF: 0 Discharge Orders: Discharge Order (Routine); Ordered 04/25/20 Ordered By: Yessenia Mahmood Admission Data Admit Date/Time: 04/24/20 18:15 Attending Provider: Yessenia Mahmood Admit Provider: Shanna Silvestre Primary Care Provider: Arsaeli Mai Other Providers: Shanna Silvestre Other Interventions: Discharge Summary Assessment (RN) Last Done: 04/25/20 11:59 Coding Level of Care Code 17387 OBS Care - Discharge Diagnoses Medication reaction [id number] COVID-19 U07.1 Hypertension I10 Hypothyroidism E03.9 Hyperlipidemia E78.5 Type 2 diabetes mellitus E11.9 DVT prophylaxis Z29.9
[2020-04-26] MEDS ORDERED: TAMOXIFEN CITRATE 10 MG TABLET PO SCH (09:00)
== END 2020-04-25 12:32 | disposition home or self-care (01) ==
LOC: ED 14:50 → 3E 14:50 → SUATTDRO 18:15 → 3E 18:58

== ENCOUNTER 2022-10-26 15:34 | Observation (INO) ==
[2022-10-26] MEDS ORDERED: SODIUM CHLORIDE 0.9% 500 ML IV STA (15:40)
[2022-10-26] MEDS ORDERED: ONDANSETRON INJ 2 MG/ML 2 ML VIAL IV STA (15:40)
--- NOTE | 2022-10-26 15:44 | Emergency Department Note ---
Impression & Plan Fall, Lumbar contusion, Contusion of hip, right, Contusion of knee, left ED Provider Note NAME: KM ROWELL AGE: 82 SEX: F : 1940 ARRIVES VIA: Ambulance INFORMANT: Patient, ED PROVIDER(S): David Amaya DO CHIEF COMPLAINT: Hip pain HPI: Patient is an 82-year-old female who was mopping the floor when she slipped and fell injuring her right hip. She also injured her left knee. She was unable to stand so she called 911. Patient arrived via ambulance. Patient did not strike her head. She denies having any headache or neck pain. She denies having any back pain. She states pain is moderate to severe and she notices it mostly in the posterior right hip as well as movement of the right hip. ROS: See above HPI for pertinent positives & negatives. A total of 10 systems reviewed and were otherwise negative. PAST MEDICAL HISTORY: See Below PAST SURGICAL HISTORY: See Below FAMILY HISTORY: See Below SOCIAL HISTORY: See Below HOME MEDICATIONS: See Below ALLERGIES: See Below VITALS: See Below PHYSICAL EXAMINATION: GENERAL: Patient is awake alert in no acute distress patient is resting c omfortably and showing no signs of anxiety EYES: The conjunctivae are clear. The pupils are round and reactive. EARS, NOSE, MOUTH AND THROAT: The nose is without any evidence of any deformity. NECK: The neck is nontender and supple. RESPIRATORY: Normal respiratory effort is noted there is no evidence of wheezing rhonchi or rales CARDIOVASCULAR: Regular rate and rhythm noted there no murmurs rubs or gallops normal S1 normal S2. GASTROINTESTINAL: The abdomen is soft. Abdomen is nontender. PELVIS: The Pelvis is stable. No tenderness to palpation is noted. BACK: No midline tenderness or or step-off noted range of motion in flexion extension as well as rotation no signs of muscle spasm noted MUSCULOSKELETAL/EXTREMITIES: There is pain with range of motion testing of the right hip. There is no shortening. Pulses are symmetric in both feet. There was a contusion over the left patella. Range of motion is intact. SKIN: There is no obvious evidence of any rash. There are no petechiae, pallor or cyanosis noted. NEUROLOGIC: Patient is awake alert and oriented x3. Strength is symmetric. MEDICAL DECISION MAKING: The patient is an 82-year-old female who presented to the emergency department after a fall. The patient landed onto her left knee as well as her right hip. She had very severe pain on the right hip. The pain was treated with pain medication in the emergency department. The patient was reevaluated multiple times. Radiographic studies were obtained and showed no definite fracture. Because of the degree of pain and the patient's inability to ambulate CT imaging was obtained which still shows no definite fracture. The patient attempted to ambulate but had severe pain. This reason I discussed her condition with the on-call [facility] hospitalist. Triage Nursing notes reviewed. Prior medical records reviewed Vital Signs: reviewed and remarkable for no significant abnormalities Differential diagnosis: Fracture, subluxation, dislocation, contusion, ligamentous injury, neurovascular, compartment syndrome, rhabdomyolysis, as well as other pathologies. ER treatment provided: See below Diagnostics interpreted by me: ECG: EKG was obtained in the emergency department. My interpretation is normal sinus rhythm at 92 bpm. There is no ectopy. There is no acute ST segment abnormalities noted. This was compared to a tracing from August 07, 2021. No changes were noted. Cardiac Monitoring: An order was placed for continuous cardiac monitoring. The m onitor shows a rate of 86 bpm with sinus rhythm. Laboratory studies: As stated above and show below. Imaging studies: See below. Radiographic imaging was reviewed by myself Consultation(s): I discussed this case with Dr. Chanel who is on-call for the [facility] hospitalist group. 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, tamoxifen x 3 years Osteopenia treated with Prolia Polymyalgia rheumatica Rosacea Schatzki's ring Seasonal allergies Sensorineural hearing loss (SNHL) of both ears Type 2 diabetes mellitus Surgical History H/O lumpectomy x 2 left breast (benign x 1, malignant x 1) H/O umbilical hernia repair H/O vaginal hysterectomy History of colonoscopy Hx of cataract extraction left S/P anal fissurectomy S/P tonsillectomy S/P tooth extraction Family History Mother Anxiety Cardiac disorder Myocardial infarction Hypertension Thyroid disorder Sister Anxiety Father Diabetes Alcohol abuse Hypertension Stroke Other No family history of adverse response to anesthesia Denies family history of Ovarian cancer Prostate cancer Breast cancer Colorectal cancer Social History Smoking Status: Never smoker Second Hand Exposure: No; Do You Dip or Chew Tobacco: No; Hx Alcohol Use: Yes (once per month) Alcohol type: beer and wine Alcohol Intake Frequency: Monthly or Less Hx Substance Use: No Preferred Language: Finnish Communication Ability: Effective Visual Impairment: No Limitations Hearing Ability: Normal Truck [employer] Required: No Beliefs That Will Affect Care: None marital status: Current Living Situation: Spouse current occupational status: retired How many Children do You have: 2 Feels Safe at Home: Yes Diet: regular caffeine: No Dental Care, Regularly: Yes Physical Activity Frequency: 5-6 Times per Week Seatbelt Use: always Sunscreen Use: Yes Assistive Devices: None Allergies Allergies Allergy/AdvReac Type Severity Reaction Status Date / Time adhesive Allergy Intermediate Blister Verified 10/26/22 17:02 propoxyphene Allergy Unknown CAN'T Verified 10/26/22 17:02 REMEMBER lisinopril AdvReac Intermediate Cough Verified 10/26/22 17:02 meperidine AdvReac Intermediate Vomiting Verified 10/26/22 17:02 Home Meds Home Medications Medication Instructions Recorded Confirmed cholecalciferol (vitamin D3) 50 2,000 units PO QAM 09/01/18 10/26/22 mcg (2,000 unit) capsule cetirizine 10 mg tablet 10 mg PO DAILY PRN Allergy Symptoms 11/24/18 10/26/22 magnesium oxide 400 mg (241.3 mg 400 mg PO DAILY 11/24/18 10/26/22 magnesium) tablet levothyroxine 75 mcg tablet 75 mcg PO QAM 05/07/22 10/26/22 losartan 50 mg tablet 50 mg PO QAM 05/07/22 10/26/22 metformin 500 mg tablet,extended 500 mg PO QAM 05/07/22 10/26/22 release 24 hr simvastatin 20 mg tablet 20 mg PO QPM 05/07/22 10/26/22 albuterol sulfate 90 mcg/actuation 1 - 2 puff inhalation Q4H PRN 10/26/22 10/26/22 aerosol inhaler shortness of breath or wheezing dulaglutide 1.5 mg/0.5 mL 1.5 mg subcut WK 10/26/22 10/26/22 subcutaneous pen injector (Trulicity) prednisone 1 mg tablet 3 mg PO DAILY 10/26/22 10/26/22 Previous Rx's Medication Instructions Recorded spironolactone 50 mg tablet 50 mg PO DAILY #90 tabs 06/09/22 insulin NPH-regular 70-30 U-100 See Rx Instructions .Route 06/20/22 insulin 100 unit/mL subcutaneous .COMPLEX #15 mL pen (Novolin 70-30 FlexPen U-100 Insulin) metoprolol succinate 25 mg 12.5 mg PO DAILY #90 tabs 06/20/22 tablet,extended release 24 hr Prolia 60 mg/mL subcutaneous 60 mg subcut Q6MO #1 mL 08/13/22 syringe (denosumab) pen needle, diabetic 32 gauge x #200 ea 09/15/2204/02" (Novofine 32) Results & Data (ED) Vital Signs Vital Signs - 24 hr 10/26/22 15:35 10/26/22 15:42 10/26/22 18:16 Temperature 36.9 C Temperature Source Oral Pulse Rate 96 H 96 H Pulse Rate [Right Finger] 80 Respiratory Rate 16 18 16 Respiratory Effort / Characteristics Non-Labored Respiratory Depth Normal Respiratory Pattern Blood Pressure 152/93 H Blood Pressure [Right Arm] 124/73 Blood Pressure Mean 112 Blood Pressure Mean [Right Arm] 90 Pulse Oximetry 98 97 97 Oxygen Delivery Method Room Air Sepsis Recent Fever Within 48 Hours No Sepsis New/Unexplained Change in Mental Status No Sepsis Action Taken by Nursing No Action Required 10/26/22 19:50 10/26/22 21:00 10/26/22 20:00 Temperature Temperature Source Pulse Rate Pulse Rate [Right Finger] 87 86 88 Respiratory Rate 15 14 14 Respiratory Effort / Characteristics Non-Labored Non-Labored Non-Labored Respiratory Depth Normal Normal Normal Respiratory Pattern Regular Regular Regular Blood Pressure Blood Pressure [Right Arm] 122/64 132/75 114/79 Blood Pressure Mean Blood Pressure Mean [Right Arm] 83 94 90 Pulse Oximetry 96 97 96 Oxygen Delivery Method Room Air Room Air Room Air Sepsis Recent Fever Within 48 Hours Sepsis New/Unexplained Change in Mental Status Sepsis Action Taken by Nursing 10/26/22 20:30 Temperature Temperature Source Pulse Rate Pulse Rate [Right Finger] 88 Respiratory Rate 14 Respiratory Effort / Characteristics Non-Labored Respiratory Depth Normal Respiratory Pattern Regular Blood Pressure Blood Pressure [Right Arm] 113/85 Blood Pressure Mean Blood Pressure Mean [Right Arm] 94 Pulse Oximetry 97 Oxygen Delivery Method Room Air Sepsis Recent Fever Within 48 Hours Sepsis New/Unexplained Change in Mental Status Sepsis Action Taken by [facility] Medications Current Medication List: was personally reviewed by me Laboratory Data Attestation: I reviewed the patient's lab results. 10/26/22 15:45 10/26/22 15:45 Lab Results 10/26/22 10/26/22 Range/Units 15:45 15:45 WBC 9.48 (4.8-10.8) K/ul RBC 4.93 (4.20-5.40) M/uL Hgb 14.0 (12.0-16.0) g/dl Hct 41.6 (37.0-47.0) % MCV 84.4 (80.0-100.0) fL MCH 28.4 (25.0-34.0) pg MCHC 33.7 (32.0-36.0) g/dL RDW Std Deviation 43.8 (36.4-46.3) fL RDW Coeff of Alethea 14.1 (11.5-14.5) % Plt Count 263 (130-400) K/uL MPV 10.8 (9.4-12.4) fL Immature Gran % (Auto) 0.4 % Neut % (Auto) 75.3 % Lymph % (Auto) 17.6 % [place] % (Auto) 5.1 % Eos % (Auto) 0.9 % Baso % (Auto) 0.7 % Neut # (Auto) 7.13 H (1.40-6.50) K/uL Lymph # (Auto) 1.67 (1.2-3.4) K/uL [place] # (Auto) 0.48 (0.11-0.59) K/uL Eos # (Auto) 0.09 (0-0.50) K/uL Baso # (Auto) 0.07 (0-0.2) K/uL Immature Gran # (Auto) 0.04 (0.01-0.20) K/uL Sodium 136 (136-145) mmol/L Potassium 4.2 (3.5-5.1) mmol/L Chloride 102 (98-107) mmol/L Carbon Dioxide 27 (21-32) mmol/L Anion Gap 7 (3-11) BUN 23 (6-23) mg/dl Creatinine 0.85 (0.6-1.2) mg/dl Est Cr Clr Drug Dosing 55.2 ml/min Est GFR ( Amer) 74.5 ml/min Est GFR (Non-Af Amer) 64.3 ml/min BUN/Creatinine Ratio 27.1 H (10-20) Glucose 252 H (70-99(Fasting)) mg/dl Calcium 9.7 (8.6-10.3) mg/dl Total Bilirubin 0.3 (0.2-1.0) mg/dl AST 13 (13-39) U/L ALT 5 L (7-52) U/L Alkaline Phosphatase 71 (34-104) U/L Troponin I High Sens 3.8 (0-14) pg/ml Total Protein 7.1 (6.0-8.3) gm/dl Albumin 4.2 (3.4-5.0) gm/dl Globulin 2.9 (2.5-4.0) gm/dl Albumin/Globulin Ratio 1.4 (0.9-2) Lipase 35 (11-82) U/L Administered Medications Morphine Sulfate (Morphine Sulfate 4 Mg/Ml 1 Ml Carp\\Vial) 4 mg IV Q15M PRN PRN Reason: Pain Stop: 11/09/22 15:39 Last Admin: 10/26/22 21:08 Dose: 4 mg Documented By: Admin: 10/26/22 15:45 Dose: 4 mg Documented By: DARIA Discontinued Medications Sodium Chloride (Nss) 500 mls @ 999 mls/hr IV .Q31M STA Stop: 10/26/22 16:10 Last Infusion: 10/26/22 16:17 Dose: 0 mls/hr Documented By: Admin: 10/26/22 15:45 Dose: 999 mls/hr Documented By: DARIA Ondansetron HCl (Ondansetron Inj 2 Mg/Ml 2 Ml Vial) 4 mg IV NOW STA Stop: 10/26/22 15:41 Last Admin: 10/26/22 15:45 Dose: 4 mg Documented By: DARIA Imaging Data Attestation: I personally reviewed and interpreted this imaging study as follows: My Impression: X-ray of the right hip and pelvis was obtained in the emergency department. My interpretation is no definite fracture, final report below. 1 view chest x-ray was obtained in the emergency department. My interpretation is no free air or definite infiltrate, final report below. Radiologist's Impression: Chest X-Ray 10/26/22 15:40 XR chest 1V portable HISTORY: fall COMPARISON: Chest 06/16/2022. FINDINGS: No pneumothorax. No pleural effusions. There is slight elevation of the right hemidiaphragm. The lung are clear. No evidence for pulmonary edema. The heart remains borderline enlarged. No acute fractures identified. IMPRESSION: No acute process. ACT 112: Negative or not required by law. Electronically signed by: Adam Toribio M.D. 10/26/2022 4:58 PM Hip/Pelvis X-Ray 10/26/22 15:40 XR hip RT 2V w pelvis CLINICAL HISTORY: fall. Right hip pain. COMPARISON STUDY: None. FINDINGS: No fracture or dislocation within the pelvis or hips. The sacrum appears intact. Mild degenerative changes within the bilateral sacroiliac joints and hips. Soft tissues are unremarkable. IMPRESSION: No fracture or dislocation within the pelvis or hips. ACT 112: Negative or not required by law. Electronically signed by: Adam Toribio M.D. 10/26/2022 4:56 PM Knee X-Ray 10/26/22 15:40 LEFT KNEE 2 VIEWS HISTORY: fall COMPARISON: None. FINDINGS: There is no fracture or dislocation. Soft tissues are unremarkable. No radiopaque foreign bodies. Mild osteoarthritis within the left knee. There are mild vascular calcifications. No knee effusion. IMPRESSION: No fractures. ACT 112: Negative or not required by law. Electronically signed by: Adam Toribio M.D. 10/26/2022 4:[address] 10/26/22 18:[address] DOSE: HISTORY: Right hip pain. fall TECHNIQUE: Multiaxial CT images of the right hip were performed and reformatted in the sagittal and coronal plane without the use of contrast. A dose lowering technique was utilized adhering to the principles of ALARA. COMPARISON: Right hip radiograph 10/26/2022. FINDINGS: No fracture or dislocation within the right hip. Soft tissues are unremarkable. Advanced degenerative changes noted at the symphysis pubis. No significant hip effusion. Mild osteoarthritis within the right hip. IMPRESSION: No fracture or dislocation within the right hip. ACT 112: Negative or not required by law. Electronically signed by: Adam Toribio M.D. 10/26/2022 7:[address] 10/26/22 18:[address] DOSE: 1545.06 mGy.cm HISTORY: Low back pain. fall TECHNIQUE: Multiaxial CT images of the lumbar spine were performed and reformatted in the sagittal and coronal plane without the use of contrast. A dose lowering technique was utilized adhering to the principles of ALARA. COMPARISON: None. FINDINGS: No fractures within the lumbar spine. The visualized sacrum is intact. Moderate facet degenerative changes within the lower lumbar spine. There is grade 1 anterolisthesis of L4 on L5. There is mild disc space narrowing at L2- L3, L3-L4, L4-L5. No high-grade central canal stenosis by CT technique. The paravertebral soft tissues are unremarkable. IMPRESSION: No fractures within the lumbar spine. ACT 112: Negative or not required by law. Electronically signed by: Adam Toribio M.D. 10/26/2022 7:43 PM Discharge Plan Visit Data Chief Complaint: Hip Pain Stated Complaint: FELL, HIP PAIN ED Provider: David Amaya Discharge Problem: Fall, Lumbar contusion, Contusion of hip, right, Contusion of knee, left Patient Disposition: Being Evaluated by Hospitalist Forms Stand Alone Forms: [facility] Prescriptions Prescriptions: No Action spironolactone 50 mg tablet 50 mg PO DAILY Qty: 90 3RF Prolia 60 mg/mL syringe 60 mg subcut Q6MO Qty: 1 2RF Rx Instructions: Inject subcut every 6 months (DME) pen needle, diabetic [Novofine 32] 32 gauge x 1/4" needle See Rx Instructions .Route Qty: 200 3RF Rx Instructions: Use BID with insulin pen Novolin 70-30 FlexPen U-100 100 unit/mL (70-30) insulin pen See Rx Instructions .ROUTE .COMPLEX Qty: 15 5RF Dose Instruction: START WITH 18 UNITS SUBCUTANEOUSLY (UNDER THE SKIN) TWO TIMES DAILY AND TITRATE DIRECTED BY PHYSICIAN. MAXIMUM DAILY DOSE OF 50 UNITS Rx Instructions: 25 units in the AM and 20 units in the PM metoprolol succinate 25 mg tablet extended release 24 hr 12.5 mg PO DAILY Qty: 90 1RF cholecalciferol (vitamin D3) 2,000 unit capsule 2,000 units PO QAM cetirizine 10 mg tablet 10 mg PO DAILY PRN (Reason: Allergy Symptoms) magnesium oxide 400 mg (241.3 mg magnesium) tablet 400 mg PO DAILY losartan 50 mg tablet 50 mg PO QAM levothyroxine 75 mcg tablet 75 mcg PO QAM simvastatin 20 mg tablet 20 mg PO QPM metformin 500 mg tablet extended release 24 hr 500 mg PO QAM prednisone 1 mg tablet 3 mg PO DAILY albuterol sulfate 90 mcg/actuation HFA aerosol inhaler 1 - 2 puff inhalation Q4H PRN (Reason: shortness of breath or wheezing) Rx Instructions: 1-2 PUFFS inhalation Q4H PRN; Trulicity 1.5 mg/0.5 mL pen injector 1.5 mg subcut WK Rx Instructions: INJECT 1.5 MG SUBCUTANEOUSLY (UNDER THE SKIN) EVERY WEEK Referrals Referrals: Araseli Mai MD [Primary Care Provider] -
[2022-10-26] MEDS: MoRPHine SULFATE 4 MG/ML 1 ML CARP\\VIAL IV PRN ×2 (15:45→21:08)
[2022-10-26 16:09] LABS: Basophils # (auto) 0.07 K/uL (0-0.2); Basophils % (auto) 0.7 %; Eosinophils # (auto) 0.09 K/uL (0-0.50); Eosinophils % (auto) 0.9 %; Hematocrit (blood only) 41.6 % (37.0-47.0); Immature Granulocytes # (auto) 0.04 K/uL (0.01-0.20); Immature Granulocytes % (auto) 0.4 %; Lymphocytes # (auto) 1.67 K/uL (1.2-3.4); Lymphocytes % (auto) 17.6 %; Mean Corpuscular Hemoglobin 28.4 pg (25.0-34.0); Mean Corpuscular Hgb Conc 33.7 g/dL (32.0-36.0); Mean Corpuscular Volume 84.4 fL (80.0-100.0); Mean Platelet Volume 10.8 fL (9.4-12.4); Monocytes # (auto) 0.48 K/uL (0.11-0.59); Monocytes % (auto) 5.1 %; Neutrophils # (auto) 7.13 K/uL (1.40-6.50); Neutrophils % (auto) 75.3 %; Platelet Count 263 K/uL (130-400); RDW Coefficient of Variation 14.1 % (11.5-14.5); RDW Standard Deviation 43.8 fL (36.4-46.3); Red Blood Count 4.93 M/uL (4.20-5.40); White Blood Count 9.48 K/ul (4.8-10.8)
[2022-10-26 16:27] LABS: Albumin Globulin Ratio 1.4 (0.9-2); Albumin Level 4.2 gm/dl (3.4-5.0); BUN Creatinine Ratio 27.1 (10-20); Bilirubin,Total 0.3 mg/dl (0.2-1.0); Calcium 9.7 mg/dl (8.6-10.3); Creatinine Clr Calc Pharmacy 55.2 ml/min; Est GFR (African American) 74.5 ml/min; Est GFR (Non-African American) 64.3 ml/min; Globulin 2.9 gm/dl (2.5-4.0); Potassium 4.2 mmol/L (3.5-5.1); Total Protein 7.1 gm/dl (6.0-8.3)
[2022-10-26 16:32] LABS: Troponin I High Sensitivity 3.8 pg/ml (0-14)
--- NOTE | 2022-10-26 16:59 | XRay Report ---
XR hip RT 2V w pelvis CLINICAL HISTORY: fall. Right hip pain. COMPARISON STUDY: None. FINDINGS: No fracture or dislocation within the pelvis or hips. The sacrum appears intact. Mild degen erative changes within the bilateral sacroiliac joints and hips. Soft tissues are unremarkable. IMPRESSION: No fracture or dislocation within the pelvis or hips. ACT 112: Negative or not required by law. Electronically signed by: Adam Toribio M.D. 10/26/2022 4:56 PM
--- NOTE | 2022-10-26 17:00 | XRay Report ---
XR chest 1V portable HISTORY: fall COMPARISON: Chest 06/16/2022. FINDINGS: No pneumothorax. No pleural effusions. There is slight elevation of the right hemidiaphragm . The lung are clear. No evidence for pulmonary edema. The heart remains borderline enlarged. No acut e fractures identified. IMPRESSION: No acute process. ACT 112: Negative or not required by law. Electronically signed by: Adam Toribio M.D. 10/26/2022 4:58 PM
--- NOTE | 2022-10-26 17:01 | XRay Report ---
LEFT KNEE 2 VIEWS HISTORY: fall COMPARISON: None. FINDINGS: There is no fracture or dislocation. Soft tissues are unremarkable. No radiopaque foreign b odies. Mild osteoarthritis within the left knee. There are mild vascular calcifications. No knee effu zion. IMPRESSION: No fractures. ACT 112: Negative or not required by law. Electronically signed by: Adam Toribio M.D. 10/26/2022 4:59 PM
--- NOTE | 2022-10-26 19:46 | CT Scan Report ---
LUMBAR SPINE CT CT DOSE: 1545.06 mGy.cm HISTORY: Low back pain. fall TECHNIQUE: Multiaxial CT images of the lumbar spine were performed and reformatted in the sagittal an d coronal plane without the use of contrast. A dose lowering technique was utilized adhering to the principles of ALARA. COMPARISON: None. FINDINGS: No fractures within the lumbar spine. The visualized sacrum is intact. Moderate facet degen erative changes within the lower lumbar spine. There is grade 1 anterolisthesis of L4 on L5. There is mild disc space narrowing at L2-L3, L3-L4, L4-L5. No high-grade central canal stenosis by CT techniq ue. The paravertebral soft tissues are unremarkable. IMPRESSION: No fractures within the lumbar spine. ACT 112: Negative or not required by law. Electronically signed by: Adam Toribio M.D. 10/26/2022 7:43 PM
--- NOTE | 2022-10-26 19:47 | CT Scan Report ---
RIGHT HIP CT CT DOSE: HISTORY: Right hip pain. fall TECHNIQUE: Multiaxial CT images of the right hip were performed and reformatted in the sagittal and c oronal plane without the use of contrast. A dose lowering technique was utilized adhering to the katelyn Montelongo. COMPARISON: Right hip radiograph 10/26/2022. FINDINGS: No fracture or dislocation within the right hip. Soft tissues are unremarkable. Advanced de generative changes noted at the symphysis pubis. No significant hip effusion. Mild osteoarthritis wit hin the right hip. IMPRESSION: No fracture or dislocation within the right hip. ACT 112: Negative or not required by law. Electronically signed by: Adam Toribio M.D. 10/26/2022 7:46 PM
--- NOTE | 2022-10-26 21:32 | History & Physical Report ---
Date of Service October 26, 2022 Assessment & Plan (1) Fall: Plan: 82yo female with ground level fall earlier today. Now with ongoing pain in the right knee, thigh, hip and back. No fracture/dislocation or deformity noted on imaging. Patient with painful extension of right knee - ?sprain/strain or small tear vs muscle spasm -Observation to medical -Ice and elevation to RLE -Tylenol 1gm po TID -Toradol 15mg IV q 6 hours PRN -Morphine as needed for pain -Flexeril as needed -Bowel regimen as needed with Colace and Miralax -Maintain fall precautions -PT/OT evaluation appreciated (2) Type 2 diabetes mellitus: Plan: Elevated blood sugar 252. Last HgbA1C on 10/10/22=7.4. Patient is on Trulicity, Metformin and 70/30 at home -Lantus 8u BID -ISS -Goal blood sugar 110 - 140 (3) Polymyalgia rheumatica: Plan: Patient on chronic prednisone. Was recently on 1mg daily but has been increased back to 3mg daily due to worsening symptoms -Continue Prednisone 3mg po daily (4) Hypertension: Plan: Chronic. Blood pressure well controlled -Continue Losartan 50mg po daily -Continue Metoprolol 12.5mg po daily -Continue Spironolactone 50mg po daily -Monitor (5) Asthma: Plan: Chronic. Stable. No cough, SOB or wheeze -Albuterol as needed (6) Hyperlipidemia: Plan: Chronic. Stable -Continue Simvastatin 20mg po daily (7) Hypothyroidism: Plan: Chronic. Stable. TSH on 10/10/22 within normal limits at 0.716 -Continue Synthroid 75mcg po daily History of Present Illness Chief Complaint: fall Primary Care Provider: Araseli Mai MD Tracey Pierre is a pleasant 82yo female presenting with right posterior knee and left hip pain following a ground level fall at home earlier this evening. Patient was mopping her floor and wiping down her flores in her entryway when she slipped on the wet floor. She fell onto the tile floor and landed first on her left knee then her right hip. She was unable to get up for approximately 30-45 minutes due to pain. After she got up she was having a difficult time bearing weight due to pain. She denies head trauma or loss of consciousness. She denies chest pain, palpitations, SOB, dizziness/lightheadedness, focal numbness/weakness preceding or following the fall. Patient continues to have significant pain now mostly in her posterior right k nee into the thigh, hip and back. She is unable to fully extend her right leg due to pain. Denies popping or tearing sound during the fall. In the ER she is afebrile, HD stable and NAD. ER Course: Morphine 4mg IV x 2 Zofran NSS Allergies Allergy/AdvReac Type Severity Reaction Status Date / Time adhesive Allergy Intermediate Blister Verified 10/26/22 17:02 propoxyphene Allergy Unknown CAN'T Verified 10/26/22 17:02 REMEMBER lisinopril AdvReac Intermediate Cough Verified 10/26/22 17:02 meperidine AdvReac Intermediate Vomiting Verified 10/26/22 17:02 Home Medications Medication Instructions Recorded Confirmed Type cholecalciferol (vitamin D3) 50 2,000 units PO QAM 09/01/18 10/26/22 History mcg (2,000 unit) capsule cetirizine 10 mg tablet 10 mg PO DAILY PRN Allergy Symptoms 11/24/18 10/26/22 History magnesium oxide 400 mg (241.3 mg 400 mg PO DAILY 11/24/18 10/26/22 History magnesium) tablet levothyroxine 75 mcg tablet 75 mcg PO QAM 05/07/22 10/26/22 History losartan 50 mg tablet 50 mg PO QAM 05/07/22 10/26/22 History metformin 500 mg tablet,extended 500 mg PO QAM 05/07/22 10/26/22 History release 24 hr simvastatin 20 mg tablet 20 mg PO QPM 05/07/22 10/26/22 History spironolactone 50 mg tablet 50 mg PO DAILY #90 tabs 06/09/22 10/26/22 Rx insulin NPH-regular 70-30 U-100 See Rx Instructions .Route 06/20/22 10/26/22 Rx insulin 100 unit/mL subcutaneous .COMPLEX #15 mL pen (Novolin 70-30 FlexPen U-100 Insulin) metoprolol succinate 25 mg 12.5 mg PO DAILY #90 tabs 06/20/22 10/26/22 Rx tablet,extended release 24 hr Prolia 60 mg/mL subcutaneous 60 mg subcut Q6MO #1 mL 08/13/22 10/26/22 Rx syringe (denosumab) pen needle, diabetic 32 gauge x #200 ea 09/15/22 10/15/22 Rx 1/4" (Novofine 32) albuterol sulfate 90 mcg/actuation 1 - 2 puff inhalation Q4H PRN 10/26/2209/29 History aerosol inhaler shortness of breath or wheezing dulaglutide 1.5 mg/0.5 mL 1.5 mg subcut WK 10/26/22 10/26/22 History subcutaneous pen injector (Trulicity) prednisone 1 mg tablet 3 mg PO DAILY 10/26/22 10/26/22 History 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, tamoxifen x 3 years Osteopenia treated with Prolia Polymyalgia rheumatica Rosacea Schatzki's ring Seasonal allergies Sensorineural hearing loss (SNHL) of both ears Type 2 diabetes mellitus Surgical History H/O lumpectomy x 2 left breast (benign x 1, malignant x 1) H/O umbilical hernia repair H/O vaginal hysterectomy History of colonoscopy Hx of cataract extraction left S/P anal fissurectomy S/P tonsillectomy S/P tooth extraction Family History Mother Anxiety Cardiac disorder Myocardial infarction Hypertension Thyroid disorder Sister Anxiety Father Diabetes Alcohol abuse Hypertension Stroke Other No family history of adverse response to anesthesia Denies family history of Ovarian cancer Prostate cancer Breast cancer Colorectal cancer Social History Smoking Status: Never smoker Second Hand Exposure: No; Do You Dip or Chew Tobacco: No; Hx Alcohol Use: Yes (once per month) Alcohol type: beer and wine Alcohol Intake Frequency: Monthly or Less Hx Substance Use: No Preferred Language: Qatari Communication Ability: Effective Visual Impairment: No Limitations Hearing Ability: Normal Transportation Escort Required: No Beliefs That Will Affect Care: None marital status: Current Living Situation: Spouse current occupational status: retired How many Children do You have: 2 Feels Safe at Home: Yes Diet: regular caffeine: No Dental Care, Regularly: Yes Physical Activity Frequency: 5-6 Times per Week Seatbelt Use: always Sunscreen Use: Yes Assistive Devices: None Review of Systems Review of Systems: All systems reviewed & are unremarkable except as noted in HPI & below Physical Exam Physical Exam: General: patient resting comfortably, NAD, non-toxic in appearance, AA&O x 4 Skin: warm, dry, intact, no rashes or lesions HEENT: NC/AT, PERRL, EOMI, anicteric sclera, conjunctiva without injection, external ear normal to inspection and nontender, nares patent, moist mucus membranes, dentition intact, no oropharyngeal lesions, neck supple, trachea midline, no LAD, no thyromegaly, no JVD Heart: +S1/S2, regular, occasional ectopy, no m/r/g Lungs: equal air entry bilaterally, no rales/rhonchi/wheezes Abd: +BS, soft, NT/ND, no masses/organomegaly/ascites Ext: warm, 2+ pulses in UE/LE bilaterally, no clubbing/cyanosis or edema. Left leg and arm larger than right which is baseline per patient. Extension of right leg causes significant posterior right knee pain and thigh pain. No pinpoint tenderness, no anterior/posterior, medial or lateral laxity to the right knee, no muscle tenderness, masses or deformity. Flexion and extension of knee limited due to pain Neuro: nonfocal, patient AA&O x 4, speech intact, no facial droop, moving all extremities on command with equal strength 5/5 Results & Data Results & Data Vital Signs (Past 12 Hours) Vital Signs Temp Pulse Pulse Resp BP BP Pulse Ox 10/26/22 20:30 88 14 113/85 97 10/26/22 20:00 88 14 114/79 96 10/26/22 21:00 86 14 132/75 97 10/26/22 19:50 87 15 122/64 96 10/26/22 18:16 80 16 124/73 97 10/26/22 15:42 96 H 18 97 10/26/22 15:35 36.9 C 96 H 16 152/93 H 98 O2 Del Method 10/26/22 20:30 Room Air 10/26/22 20:00 Room Air 10/26/22 21:00 Room Air 10/26/22 19:50 Room Air 10/26/22 18:16 10/26/22 15:42 Room Air 10/26/22 15:35 Laboratory Results Laboratory Results WBC 9.48 K/ul (4.8-10.8) 10/26/22 15:45 RBC 4.93 M/uL (4.20-5.40) 10/26/22 15:45 Hgb 14.0 g/dl (12.0-16.0) 10/26/22 15:45 Hct 41.6 % (37.0-47.0) 10/26/22 15:45 MCV 84.4 fL (80.0-100.0) 10/26/22 15:45 MCH 28.4 pg (25.0-34.0) 10/26/22 15:45 MCHC 33.7 g/dL (32.0-36.0) 10/26/22 15:45 RDW Std Deviation 43.8 fL (36.4-46.3) 10/26/22 15:45 RDW Coeff of Alethea 14.1 % (11.5-14.5) 10/26/22 15:45 Plt Count 263 K/uL (130-400) 10/26/22 15:45 MPV 10.8 fL (9.4-12.4) 10/26/22 15:45 Immature Gran % (Auto) 0.4 % 10/26/22 15:45 Neut % (Auto) 75.3 % 10/26/22 15:45 Lymph % (Auto) 17.6 % 10/26/22 15:45 Woodward % (Auto) 5.1 % 10/26/22 15:45 Eos % (Auto) 0.9 % 10/26/22 15:45 Baso % (Auto) 0.7 % 10/26/22 15:45 Neut # (Auto) 7.13 K/uL (1.40-6.50) H 10/26/22 15:45 Lymph # (Auto) 1.67 K/uL (1.2-3.4) 10/26/22 15:45 Woodward # (Auto) 0.48 K/uL (0.11-0.59) 10/26/22 15:45 Eos # (Auto) 0.09 K/uL (0-0.50) 10/26/22 15:45 Baso # (Auto) 0.07 K/uL (0-0.2) 10/26/22 15:45 Immature Gran # (Auto) 0.04 K/uL (0.01-0.20) 10/26/22 15:45 Sodium 136 mmol/L (136-145) 10/26/22 15:45 Potassium 4.2 mmol/L (3.5-5.1) 10/26/22 15:45 Chloride 102 mmol/L (98-107) 10/26/22 15:45 Carbon Dioxide 27 mmol/L (21-32) 10/26/22 15:45 Anion Gap 7 (3-11) 10/26/22 15:45 BUN 23 mg/dl (6-23) 10/26/22 15:45 Creatinine 0.85 mg/dl (0.6-1.2) 10/26/22 15:45 Est Cr Clr Drug Dosing 55.2 ml/min 10/26/22 15:45 Est GFR ( Amer) 74.5 ml/min 10/26/22 15:45 Est GFR (Non-Af Amer) 64.3 ml/min 10/26/22 15:45 BUN/Creatinine Ratio 27.1 (10-20) H 10/26/22 15:45 Glucose 252 mg/dl (70-99(Fasting)) H 10/26/22 15:45 Calcium 9.7 mg/dl (8.6-10.3) 10/26/22 15:45 Total Bilirubin 0.3 mg/dl (0.2-1.0) 10/26/22 15:45 AST 13 U/L (13-39) 10/26/22 15:45 ALT 5 U/L (7-52) L 10/26/22 15:45 Alkaline Phosphatase 71 U/L (34-104) 10/26/22 15:45 Troponin I High Sens 3.8 pg/ml (0-14) 10/26/22 15:45 Total Protein 7.1 gm/dl (6.0-8.3) 10/26/22 15:45 Albumin 4.2 gm/dl (3.4-5.0) 10/26/22 15:45 Globulin 2.9 gm/dl (2.5-4.0) 10/26/22 15:45 Albumin/Globulin Ratio 1.4 (0.9-2) 10/26/22 15:45 Lipase 35 U/L (11-82) 10/26/22 15:45 Impressions Chest X-Ray 10/26/22 15:40 XR chest 1V portable HISTORY: fall COMPARISON: Chest 06/16/2022. FINDINGS: No pneumothorax. No pleural effusions. There is slight elevation of the right hemidiaphragm. The lung are clear. No evidence for pulmonary edema. The heart remains borderline enlarged. No acute fractures identified. IMPRESSION: No acute process. ACT 112: Negative or not required by law. Electronically signed by: Adam Toribio M.D. 10/26/2022 4:58 PM Hip/Pelvis X-Ray 10/26/22 15:40 XR hip RT 2V w pelvis CLINICAL HISTORY: fall. Right hip pain. COMPARISON STUDY: None. FINDINGS: No fracture or dislocation within the pelvis or hips. The sacrum appears intact. Mild degenerative changes within the bilateral sacroiliac joints and hips. Soft tissues are unremarkable. IMPRESSION: No fracture or dislocation within the pelvis or hips. ACT 112: Negative or not required by law. Electronically signed by: Adam Toribio M.D. 10/26/2022 4:56 PM Knee X-Ray 10/26/22 15:40 LEFT KNEE 2 VIEWS HISTORY: fall COMPARISON: None. FINDINGS: There is no fracture or dislocation. Soft tissues are unremarkable. No radiopaque foreign bodies. Mild osteoarthritis within the left knee. There are mild vascular calcifications. No knee effusion. IMPRESSION: No fractures. ACT 112: Negative or not required by law. Electronically signed by: Adam Toribio M.D. 10/26/2022 4:[address] 10/26/22 18:[address] DOSE: HISTORY: Right hip pain. fall TECHNIQUE: Multiaxial CT images of the right hip were performed and reformatted in the sagittal and coronal plane without the use of contrast. A dose lowering technique was utilized adhering to the principles of ALARA. COMPARISON: Right hip radiograph 10/26/2022. FINDINGS: No fracture or dislocation within the right hip. Soft tissues are unremarkable. Advanced degenerative changes noted at the symphysis pubis. No significant hip effusion. Mild osteoarthritis within the right hip. IMPRESSION: No fracture or dislocation within the right hip. ACT 112: Negative or not required by law. Electronically signed by: Adam Toribio M.D. 10/26/2022 7:[address] 10/26/22 18:[address] DOSE: 1545.06 mGy.cm HISTORY: Low back pain. fall TECHNIQUE: Multiaxial CT images of the lumbar spine were performed and reformatted in the sagittal and coronal plane without the use of contrast. A dose lowering technique was utilized adhering to the principles of ALARA. COMPARISON: None. FINDINGS: No fractures within the lumbar spine. The visualized sacrum is intact. Moderate facet degenerative changes within the lower lumbar spine. There is grade 1 anterolisthesis of L4 on L5. There is mild disc space narrowing at L2- L3, L3-L4, L4-L5. No high-grade central canal stenosis by CT technique. The paravertebral soft tissues are unremarkable. IMPRESSION: No fractures within the lumbar spine. ACT 112: Negative or not required by law. Electronically signed by: Adam Toribio M.D. 10/26/2022 7:43 PM PG Care Time/CCT Total # of Minutes Spent Total Time Spent with Patient: Total time spent is greater than 50% in coordination of care (as documented) at patient's floor/unit and/or counseling patient: Coding Level of Care Code 28557 INT INP/OBS CARE 3/75MIN Diagnoses Fall W19.XXXA Encounter type: initial encounter Type 2 diabetes mellitus E11.9 Polymyalgia rheumatica M35.3 Hypertension I10 Asthma J45.909 Hyperlipidemia E78.5 Hypothyroidism E03.9 (1) Fall Encounter type: initial encounter Qualified Code(s): W19.XXXA - Unspecified fall, initial encounter
[2022-10-26] MEDS ORDERED: MoRPHine SULFATE 2 MG/ML CARP IV PRN (23:09)
[2022-10-26] MEDS ORDERED: GLUCOSE 40% GEL 15 GM TUBE PO PRN (23:09)
[2022-10-26] MEDS ORDERED: GLUCOSE 10 TAB/TUBE PO PRN (23:09)
[2022-10-26] MEDS ORDERED: CARBOHYDRATES FOR HYPOGLYCEMIA PO PRN (23:09)
[2022-10-26] MEDS ORDERED: GLUCAGON FOR INJ 1 MG VIAL SQ PRN (23:09)
[2022-10-26] MEDS ORDERED: DOCUSATE SODIUM 100 MG CAP PO PRN (23:09)
[2022-10-26] MEDS ORDERED: ONDANSETRON INJ 2 MG/ML 2 ML VIAL IV PRN (23:09)
[2022-10-26] MEDS ORDERED: POLYETHYLENE (MIRALAX) 17 GM PACK PO PRN (23:09)
[2022-10-26] MEDS ORDERED: DEXTROSE 50% 50 ML SYRINGE IV PRN (23:09)
[2022-10-26] MEDS ORDERED: ALBUTEROL HFA 8 GM INHALER INH PRN (23:09)
[2022-10-26] MEDS ORDERED: CETIRIZINE HCL 10 MG TABLET PO PRN (23:09)
[2022-10-26] MEDS ORDERED: Nursing to Pharmacy Communication SCH (23:30)
[2022-10-26] MEDS: INSULIN ASPART PER UNIT CHARGE SC SCH (23:44)
[2022-10-26] MEDS: KETOROLAC TROMETHAMINE 15 MG/ML VIAL IV PRN (23:47)
[2022-10-26] MEDS: CYCLOBENZAPRINE HCL 5 MG TAB PO PRN (23:55)
[2022-10-26] MEDS: ACETAMINOPHEN 500 MG TAB PO SCH (23:55)
[2022-10-26] MEDS: METOPROLOL SUCC 25MG EXT REL TAB PO SCH (23:55)
[2022-10-27] MEDS: ACETAMINOPHEN 500 MG TAB PO SCH ×3 (05:45→22:16)
[2022-10-27] MEDS: LEVOTHYROXINE SODIUM 75 MCG TABLET PO SCH (05:45)
[2022-10-27] MEDS: KETOROLAC TROMETHAMINE 15 MG/ML VIAL IV PRN (05:46)
[2022-10-27] MEDS: CYCLOBENZAPRINE HCL 5 MG TAB PO PRN (06:08)
[2022-10-27 06:17] LABS: Hematocrit (blood only) 41.8 % (37.0-47.0); Hemoglobin 13.6 g/dl (12.0-16.0); Mean Corpuscular Hemoglobin 28.2 pg (25.0-34.0); Mean Corpuscular Hgb Conc 32.5 g/dL (32.0-36.0); Mean Corpuscular Volume 86.7 fL (80.0-100.0); Mean Platelet Volume 10.5 fL (9.4-12.4); Platelet Count 236 K/uL (130-400); RDW Coefficient of Variation 14.1 % (11.5-14.5); RDW Standard Deviation 45.2 fL (36.4-46.3); Red Blood Count 4.82 M/uL (4.20-5.40); White Blood Count 10.39 K/ul (4.8-10.8)
[2022-10-27 06:31] LABS: Creatinine Clr Calc Pharmacy 51.3 ml/min; Est GFR (African American) 67.7 ml/min; Est GFR (Non-African American) 58.4 ml/min; Magnesium 1.8 mg/dl (1.7-2.4); Potassium 4.2 mmol/L (3.5-5.1)
[2022-10-27] MEDS: SPIRONOLACTONE 25 MG TAB PO SCH (07:35)
[2022-10-27] MEDS: LOSARTAN POTASSIUM 50 MG TAB PO SCH (07:35)
[2022-10-27] MEDS: predniSONE 1 MG TAB PO SCH (07:36)
[2022-10-27] MEDS: LANTUS PER UNIT CHARGE SQ SCH ×2 (08:04→21:13)
[2022-10-27] MEDS: INSULIN ASPART PER UNIT CHARGE SC SCH ×4 (08:04→21:12)
[2022-10-27] MEDS: MoRPHine SULFATE 4 MG/ML 1 ML CARP\\VIAL IV PRN (10:38)
[2022-10-27] MEDS ORDERED: SIMVASTATIN 20 MG TAB PO SCH (21:00)
[2022-10-27] MEDS: METOPROLOL SUCC 25MG EXT REL TAB PO SCH (21:00)
[2022-10-28] MEDS: CYCLOBENZAPRINE HCL 5 MG TAB PO PRN ×2 (00:20→08:53)
[2022-10-28] MEDS: MoRPHine SULFATE 4 MG/ML 1 ML CARP\\VIAL IV PRN ×3 (01:49→14:37)
[2022-10-28] MEDS: ACETAMINOPHEN 500 MG TAB PO SCH ×2 (06:02→14:37)
[2022-10-28] MEDS: LEVOTHYROXINE SODIUM 75 MCG TABLET PO SCH (06:02)
[2022-10-28] MEDS: LOSARTAN POTASSIUM 50 MG TAB PO SCH (08:53)
[2022-10-28] MEDS: predniSONE 1 MG TAB PO SCH (08:53)
[2022-10-28] MEDS: SPIRONOLACTONE 25 MG TAB PO SCH (08:53)
[2022-10-28] MEDS: INSULIN ASPART PER UNIT CHARGE SC SCH ×3 (08:56→17:50)
[2022-10-28] MEDS: LANTUS PER UNIT CHARGE SQ SCH (08:56)
[2022-10-28] MEDS ORDERED: predniSONE 10 MG TABLET PO STA (10:27)
[2022-10-28] MEDS: DICLOFENAC SOD 1% GEL 100 GM TUBE EXT SCH ×2 (14:44→17:50)
--- NOTE | 2022-10-28 17:08 | CT Scan Report ---
CT pelvis wo con HISTORY: 82 years-old Female recent fall, trauma; L pelvic pain; eval Fx acute pelvic pain status po st fall COMPARISON: Lumbar spine and right hip CT studies 10/26/2022 TECHNIQUE: Multiple axial CT images of the bony pelvis were obtained without the use of IV contrast. A dose lowering technique was used consistent with the principals of MOON. FINDINGS: The imaged intrapelvic structures demonstrate no acute abnormality. Noninflamed appendix. Colonic div erticulosis. Decompressed urinary bladder with wall thickening. Atherosclerosis. Partially imaged lakshmi ateral perinephric stranding. Possible cyst of the inferior pole right kidney is indeterminate and co uld be further evaluated with ultrasound. Demineralized appearance of the bones. Degenerative changes of the imaged lumbar spine. Moderate dege neration of the SI joints. No acute sacral fracture. Severe degeneration of the pubic symphysis. No a cute pelvic ring fracture identified. Mild to moderate osteoarthritis of the hips. No acute fracture, dislocation or avascular necrosis. Inflammatory stranding is noted adjacent to the right ischial tuberosity and proximal hamstring tendo ns. IMPRESSION: 1. No acute fracture or dislocation. 2. Inflammatory stranding adjacent to the right ischial tuberosity and proximal hamstring tendons. Co rrelate with clinical exam findings and patient history to exclude an acute myotendinous injury. ACT 112: Negative or not required by law. The above report was generated using voice recognition software. It may contain grammatical, syntax o r spelling errors. Electronically signed by: Isak Chawla M.D. 10/28/2022 5:06 PM
--- NOTE | 2022-10-28 18:11 | Hospitalist Progress Note ---
Date of Service October 27, 2022 Late entry technical Assessment & Plan (1) Fall: Plan: 82yo female with ground level fall earlier today. Now with ongoing pain in the right knee, thigh, hip and back. No fracture/dislocation or deformity noted on imaging. Patient with painful extension of right knee - ?sprain/strain or small tear vs muscle spasm -Observation to medical -Ice and elevation to RLE -Tylenol 1gm po TID -Toradol 15mg IV q 6 hours PRN -Morphine as needed for pain -Flexeril as needed -Bowel regimen as needed with Colace and Miralax -Maintain fall precautions -PT/OT evaluation appreciated (2) Type 2 diabetes mellitus: Plan: Elevated blood sugar 252. Last HgbA1C on 10/10/22=7.4. Patient is on Trulicity, Metformin and 70/30 at home -Lantus 8u BID -ISS -Goal blood sugar 110 - 140 (3) Polymyalgia rheumatica: Plan: Patient on chronic prednisone. Was recently on 1mg daily but has been increased back to 3mg daily due to worsening symptoms -Continue Prednisone 3mg po daily (4) Hypertension: Plan: Chronic. Blood pressure well controlled -Continue Losartan 50mg po daily -Continue Metoprolol 12.5mg po daily -Continue Spironolactone 50mg po daily -Monitor (5) Asthma: Plan: Chronic. Stable. No cough, SOB or wheeze -Albuterol as needed (6) Hyperlipidemia: Plan: Chronic. Stable -Continue Simvastatin 20mg po daily (7) Hypothyroidism: Plan: Chronic. Stable. TSH on 10/10/22 within normal limits at 0.716 -Continue Synthroid 75mcg po daily Plan Symptomatic treatmentand discharge from observation status tomorrow. Admission and Anticipated Discharge Date Admission Date: October 26, 2022 Anticipated date of discharge: 10/28/22 Subjective Details of history and physical reviewed with the patient. She is starting to feel better. She was brought in for observation status following a ground-level fall. Imaging of pelvis and right hip as well as left knee 2 view have been negative for fracture or dislocation. The patient does have underlying polymyalgia rheumatica and is on low-dose steroids. Physical Exam Constitutional: WD/WN, vitals as above Eyes: PERRL, conjunctivae normal, anicteric sclerae Respiratory: normal respiratory effort, lungs clear to auscultation Cardiovascular: RRR, no murmur, no edema Gastrointestinal (Abdomen): normal bowel sounds, soft, nontender, no hepatosplenomegaly Results & Data Results & Data Vital Signs (Past 12 Hours) Vital Signs Temp Pulse Resp BP Pulse Ox O2 Del Method 10/28/22 15:46 36.9 C 77 16 125/69 93 Room Air 10/28/22 07:51 36.5 C 68 16 110/70 95 Room Air PG Care Time/CCT Total # of Minutes Spent Total Time Spent with Patient: Total time spent is greater than 50% in coordination of care (as documented) at patient's floor/unit and/or counseling patient: Coding Level of Care Code 89344 SUB INP/OBS CARE 04/23MIN Diagnoses Fall W19.XXXA Encounter type: initial encounter Type 2 diabetes mellitus E11.9 Polymyalgia rheumatica M35.3 Hypertension I10 Asthma J45.909 Hyperlipidemia E78.5 Hypothyroidism E03.9 Time Spent (min) 25 (1) Fall Encounter type: initial encounter Qualified Code(s): W19.XXXA - Unspecified fall, initial encounter
--- NOTE | 2022-10-28 23:31 | Electrocardiogram Report ---
Test Reason : Blood Pressure : / mmHG Vent. Rate : 092 BPM Atrial Rate : 092 BPM P-R Int : 192 ms QRS Dur : 086 ms QT Int : 356 ms P-R-T Axes : 097 -33 036 degrees QTc Int : 440 ms Normal sinus rhythm Left axis deviation Abnormal ECG When compared with ECG of 07-AUG-2021 18:34, No significant change was found Confirmed by Sergei Peña ([id number]) on 10/28/2022 11:30:40 PM Referred By: Confirmed By:Sergei Peña
--- NOTE | 2022-11-04 19:00 | Discharge Summary ---
Date of Service date of admission - October 26, 2022 date of discharge - October 28, 2022 Admission HPI Per Admitting Provider Tracey Pierre is a pleasant 82yo female presenting with right posterior knee and left hip pain following a ground level fall at home earlier this evening. Patient was mopping her floor and wiping down her flores in her entryway when she slipped on the wet floor. She fell onto the tile floor and landed first on her left knee then her right hip. She was unable to get up for approximately 30-45 minutes due to pain. After she got up she was having a difficult time bearing weight due to pain. She denies head trauma or loss of consciousness. She denies chest pain, palpitations, SOB, dizziness/lightheadedness, focal numbness/weakness preceding or following the fall. Patient continues to have significant pain now mostly in her posterior right knee into the thigh, hip and back. She is unable to fully extend her right leg due to pain. Denies popping or tearing sound during the fall. In the ER she is afebrile, HD stable and NAD. ER Course: Morphine 4mg IV x 2 Zofran NSS Principal Diagnosis 1. accidental fall 2. right thigh strain 3. lumbar back pain with no evidence of fracture on CT scan 4. left pelvic pain with no evidence of fracture on CT scan 5. right knee pain due to fall Discharge Exam gen - awake, alert, NAD, pleasant mouth - MMM neck - no JVD heart - RRR, s1 s2, no murmur lungs - CTA b/l abd - soft NT ND BS+ musculo - right hip with full passive ROM without pain; knee extension causes posterior thigh pain distally; right posterior thigh without bruising or hematoma; right knee with mild pain with passive ROM; left pelvic pain with palpation and passive ROM of left hip back - tender paraspinal region - right lumbar area extremities - no ankle edema, pulses 2+ b/l Discharge Data Allergies Allergy/AdvReac Type Severity Reaction Status Date / Time adhesive Allergy Intermediate Blister Verified 11/03/22 16:26 propoxyphene Allergy Unknown CAN'T Verified 11/03/22 16:26 REMEMBER lisinopril AdvReac Intermediate Cough Verified 11/03/22 16:26 meperidine AdvReac Intermediate Vomiting Verified 11/03/22 16:26 Consultations PT, OT Ordered Studies Chest X-Ray 10/26/22 15:40 XR chest 1V portable HISTORY: fall COMPARISON: Chest 06/16/2022. FINDINGS: No pneumothorax. No pleural effusions. There is slight elevation of the right hemidiaphragm. The lung are clear. No evidence for pulmonary edema. The heart remains borderline enlarged. No acute fractures identified. IMPRESSION: No acute process. ACT 112: Negative or not required by law. Electronically signed by: Adam Toribio M.D. 10/26/2022 4:58 PM Hip/Pelvis X-Ray 10/26/22 15:40 XR hip RT 2V w pelvis CLINICAL HISTORY: fall. Right hip pain. COMPARISON STUDY: None. FINDINGS: No fracture or dislocation within the pelvis or hips. The sacrum appears intact. Mild degenerative changes within the bilateral sacroiliac joints and hips. Soft tissues are unremarkable. IMPRESSION: No fracture or dislocation within the pelvis or hips. ACT 112: Negative or not required by law. Electronically signed by: Adam Toribio M.D. 10/26/2022 4:56 PM Knee X-Ray 10/26/22 15:40 LEFT KNEE 2 VIEWS HISTORY: fall COMPARISON: None. FINDINGS: There is no fracture or dislocation. Soft tissues are unremarkable. No radiopaque foreign bodies. Mild osteoarthritis within the left knee. There are mild vascular calcifications. No knee effusion. IMPRESSION: No fractures. ACT 112: Negative or not required by law. Electronically signed by: Adam Toribio M.D. 10/26/2022 4:[address] 10/26/22 18:[address] DOSE: HISTORY: Right hip pain. fall TECHNIQUE: Multiaxial CT images of the right hip were performed and reformatted in the sagittal and coronal plane without the use of contrast. A dose lowering technique was utilized adhering to the principles of ALARA. COMPARISON: Right hip radiograph 10/26/2022. FINDINGS: No fracture or dislocation within the right hip. Soft tissues are unremarkable. Advanced degenerative changes noted at the symphysis pubis. No significant hip effusion. Mild osteoarthritis within the right hip. IMPRESSION: No fracture or dislocation within the right hip. ACT 112: Negative or not required by law. Electronically signed by: Adam Toribio M.D. 10/26/2022 7:[address] 10/26/22 18:[address] DOSE: 1545.06 mGy.cm HISTORY: Low back pain. fall TECHNIQUE: Multiaxial CT images of the lumbar spine were performed and reformatted in the sagittal and coronal plane without the use of contrast. A dose lowering technique was utilized adhering to the principles of ALARA. COMPARISON: None. FINDINGS: No fractures within the lumbar spine. The visualized sacrum is intact. Moderate facet degenerative changes within the lower lumbar spine. There is grade 1 anterolisthesis of L4 on L5. There is mild disc space narrowing at L2- L3, L3-L4, L4-L5. No high-grade central canal stenosis by CT technique. The paravertebral soft tissues are unremarkable. IMPRESSION: No fractures within the lumbar spine. ACT 112: Negative or not required by law. Electronically signed by: Adam Toribio M.D. 10/26/2022 7:[address] 10/28/22 16:02 CT pelvis wo con HISTORY: 82 years-old Female recent fall, trauma; L pelvic pain; eval Fx acute pelvic pain status post fall COMPARISON: Lumbar spine and right hip CT studies 10/26/2022 TECHNIQUE: Multiple axial CT images of the bony pelvis were obtained without the use of IV contrast. A dose lowering technique was used consistent with the principals of ALARA. FINDINGS: The imaged intrapelvic structures demonstrate no acute abnormality. Noninflamed appendix. Colonic diverticulosis. Decompressed urinary bladder with wall thickening. Atherosclerosis. Partially imaged bilateral perinephric stranding. Possible cyst of the inferior pole right kidney is indeterminate and could be further evaluated with ultrasound. Demineralized appearance of the bones. Degenerative changes of the imaged lumbar spine. Moderate degeneration of the SI joints. No acute sacral fracture. Severe degeneration of the pubic symphysis. No acute pelvic ring fracture identified. Mild to moderate osteoarthritis of the hips. No acute fracture, dislocation or avascular necrosis. Inflammatory stranding is noted adjacent to the right ischial tuberosity and proximal hamstring tendons. IMPRESSION: 1. No acute fracture or dislocation. 2. Inflammatory stranding adjacent to the right ischial tuberosity and proximal hamstring tendons. Correlate with clinical exam findings and patient history to exclude an acute myotendinous injury. ACT 112: Negative or not required by law. The above report was generated using voice recognition software. It may contain grammatical, syntax or spelling errors. Electronically signed by: Isak Chawla M.D. 10/28/2022 5:06 PM Hospital Course (1) Fall: Accidental fall leading to back, right posterior thigh, and right knee pain. Extensive imaging negative for fracture. Clinical exam and pelvic CT consistent with right posterior thigh strain. Seen by PT/OT, cleared for home. Patient will take a prednisone taper (then ultimately resume her chronic prednisone dose of 3mg/day), norco prn, and voltaren gel prn. She can use ice for a few days to the right thigh, then switch to heat as needed. Script for outpatient physical therapy given - can start in ~1 week post- discharge. (2) Type 2 diabetes mellitus: Last HgbA1C on 10/10/22=7.4% Continue Trulicity, Metformin and 70/30 insulin at home. (3) Polymyalgia rheumatica: Patient on chronic prednisone. Had been on 1mg daily but recently her dose was increased back to 3mg daily due to worsening symptoms. Advised a steroid burst to help with pain in the setting of her fall, then ultimately resume her usual 3mg/day. (4) Hypertension: Chronic. Blood pressure well controlled while here. Continue Losartan 50mg po daily Continue Metoprolol 12.5mg po daily Continue Spironolactone 50mg po daily (5) Asthma: Chronic and Stable. No issues while here. (6) Hyperlipidemia: Continue Simvastatin 20mg po daily (7) Hypothyroidism: TSH on 10/10/22 within normal limits at 0.716. Continue Synthroid 75mcg po daily. Total Time Total Time Spent Total Time Spent (In Minutes): 40 Discharge Plan Discharge Items Patient Disposition: Home - Self-Care Reason For Visit: FALL, ONGOING PAIN Discharge Diagnosis: 1. accidental fall 2. right thigh strain 3. lumbar (low) back pain with no evidence of fracture on CT scan 4. pelvic pain with no evidence of fracture on CT scan 5. knee pain due to fall Activity: As commented below Activity Comment: light activities only for 1 week, then gradually increase activities Lifting: No more than 10 pounds Exercise/Sports: Wait until after follow-up appointment Driving/Machine Use: NO DRIVING while taking narcotic pain killer medication Non-emergency contact: Primary Care Provider Call non-emergency contact if: you have any medication questions, your symptoms worsen, your pain is not controlled, your pain is worsening and your pain is concerning for you Follow-up/Referrals: Araseli Mai MD [Primary Care Provider] - 11/03/22 4:30 pm (Appointment is with Tesha Guo instead) Diet: Carb Consistent or DM2 Addtl Attending Provider Instructions: Mrs Pierre, You were hospitalized after having had a fall at home. You suffered multiple injuries including a right thigh strain, contusions to your back/lumbar spine/knees, etc. With time your muscle and bone pain gradually improved. PT/OT saw you in consult and felt you could return home with your 's assistance. Outpatient PT has been recommended to regain your strength and mobility. Recommendations - 1. For back pain/joint pain - * hydrocodone-acetaminophen - 1 tablet every 6 hours as needed for pain * this is a narcotic pain killer medication * do not drink alcohol or drive a car while taking this medication as the medication can make you sleepy * the hydrocodone can cause constipation * since the medication has tylenol in it please do not take extra [id number] tylenol if you choose to take the narcotic 2. For right thigh pain - * diclofenac gel - 4 grams every 6 hours as needed * if you don't use it on the right thigh you can place it on either knee, the lumbar spine/low back area, etc * continue the ice as you are currently doing (20-30 minutes, 4-5 times each day) * do the ice for another 5-6 days * after that you can switch to heat 3. Prednisone taper - in addition to your usual 3mg of prednisone you take daily please follow the below taper - * 10/29/22 - take 20mg of prednisone extra * 10/30/22 - take 15mg of prednisone extra * 10/31/22 - take 10mg of prednisone extra * 11/01/22 - take 5mg of prednisone extra A prescription for the extra prednisone was sent to [facility] for you. 4. In about 1 week please start a physical therapy program at the outpatient gym of your choosing. I have given you a prescription for PT/OT. 5. Know that the extra prednisone may raise your blood sugars higher than typical over the next several days. 6. If you take the narcotic pain killer medication you will likely need to take something for constipation. Kfyl-pxl-albosrx options include - * miralax (glycolax) one serving daily and/or * senokot 2 tablets daily Follow-up - see separate section Return to [facility] if - * you have worsening pain despite taking all of the above medications * you have difficulty walking due to pain * you develop severe constipation * any other concerns It was our pleasure to care for you! -Dr Matias Pending Studies at Discharge: No Stand-Alone Forms: My [facility], Smoking Cessation Medications and DC Order Prescriptions: New diclofenac sodium [Voltaren Arthritis Pain] 1 % Gel 4 g EXT QID PRN (Reason: right thigh pain or knee pain) Qty: 1 0RF prednisone 5 mg tablet 5 mg PO DIRECTED Qty: 10 0RF Rx Instructions: 4 tabs day 1, 3 tabs day 2, 2 tabs day 3, 1 tab day 4. Take with food. Continued spironolactone 50 mg tablet 50 mg PO DAILY Qty: 90 3RF Prolia 60 mg/mL syringe 60 mg subcut Q6MO Qty: 1 2RF Rx Instructions: Inject subcut every 6 months (DME) pen needle, diabetic [Novofine 32] 32 gauge x 1/4" needle See Rx Instructions .Route Qty: 200 3RF Rx Instructions: Use BID with insulin pen losartan 50 mg tablet 50 mg PO QAM Qty: 90 3RF Novolin 70-30 FlexPen U-100 100 unit/mL (70-30) insulin pen See Rx Instructions .ROUTE .COMPLEX Qty: 15 5RF Dose Instruction: START WITH 18 UNITS SUBCUTANEOUSLY (UNDER THE SKIN) TWO TIMES DAILY AND TITRATE DIRECTED BY PHYSICIAN. MAXIMUM DAILY DOSE OF 50 UNITS Rx Instructions: 25 units in the AM and 20 units in the PM metoprolol succinate 25 mg tablet extended release 24 hr 12.5 mg PO DAILY Qty: 90 1RF cholecalciferol (vitamin D3) 2,000 unit capsule 2,000 units PO QAM cetirizine 10 mg tablet 10 mg PO DAILY PRN (Reason: Allergy Symptoms) magnesium oxide 400 mg (241.3 mg magnesium) tablet 400 mg PO DAILY levothyroxine 75 mcg tablet 75 mcg PO QAM simvastatin 20 mg tablet 20 mg PO QPM metformin 500 mg tablet extended release 24 hr 500 mg PO QAM prednisone 1 mg tablet 3 mg PO DAILY albuterol sulfate 90 mcg/actuation HFA aerosol inhaler 1 - 2 puff inhalation Q4H PRN (Reason: shortness of breath or wheezing) Rx Instructions: 1-2 PUFFS inhalation Q4H PRN; Trulicity 1.5 mg/0.5 mL pen injector 1.5 mg subcut WK Rx Instructions: INJECT 1.5 MG SUBCUTANEOUSLY (UNDER THE SKIN) EVERY WEEK No Action tramadol 50 mg tablet 50 mg PO Q8H PRN (Reason: pain) Qty: 30 0RF Discharge Orders: Discharge Order (Routine); Ordered 10/28/22 Ordered By: Tim Matias Admission Data Admit Date/Time: 10/26/22 21:32 Attending Provider: Tim Matias Admit Provider: Aracelis Chanel Primary Care Provider: Araseli Mai Other Interventions: Discharge Summary Assessment (RN) Last Done: 10/28/22 18:09 Coding Level of Care Code 57997 INP/OBS DISCH >30 MIN Diagnoses Fall W19.XXXA Encounter type: initial encounter Type 2 diabetes mellitus E11.9 Polymyalgia rheumatica M35.3 Hypertension I10 Asthma J45.909 Hyperlipidemia E78.5 Hypothyroidism E03.9
== END 2022-10-28 18:31 | disposition home or self-care (01) ==
LOC: 3W 15:34 → ED 15:34 → SUATTDRO 21:32 → 3W 22:50